=== PATIENT | female | born 1975 | race African-American/Black ===

== ENCOUNTER 2024-02-11 14:02 | Outpatient (CLI) | payer MEDICARE, SELFPAY ==
--- NOTE | ~2024-02-11 | US_ITS ---
EXAMINATION: US thyroid DATE: 02/11/2024 14:33 INDICATION: Thyroid nodules. TECHNIQUE: Multiple ultrasound images of the thyroid were obtained. COMPARISON: None. FINDINGS: The right thyroid lobe measures 5.3 x 1.8 x 1.5 cm. The left thyroid lobe measures 4.6 x 1.4 x 1.4 c m. In the thyroid isthmus, there is an 11 mm, solid, hypoechoic, wider than tall nodule with smooth margin without echogenic foci (TI-RADS TR4). IMPRESSION: 1. Thyroid nodule. Thyroid ultrasound is recommended in one year. Reviewed, dictated and finalized at location A.
== END 2024-02-11 14:03 | disposition home or self-care (01) ==
PROVIDERS: Visit Provider Internal Medicine Endocrinology, Diabetes & Metabolism
DX: R73.03 Prediabetes (principal); E04.1 Nontoxic single thyroid nodule
CPT/HCPCS: 76536

== ENCOUNTER 2025-03-13 12:54 | Outpatient (CLI) | payer MEDICARE, SELFPAY ==
--- NOTE | ~2025-03-13 | US_ITS ---
US thyroid INDICATION: Follow-up thyroid nodules TECHNIQUE: Real-time sonographic images of the thyroid gland were obtained. COMPARISON: Comparison to ultrasound dated 02/11/2024 FINDINGS: The right thyroid lobe measures 5.3 x 1.8 x 1.5 cm. The left thyroid lobe measures 4.6 x 1 .4 x 1.4 cm. In the right lobe there is an oval hypoechoic mass measuring 4 x 3 x 4 mm which is solid , hypoechoic, wider than tall, smoothly marginated without internal echogenic foci, TR 4. In the left lobe there is a hypoechoic 4 mm mass which is wider than tall, almost completely solid, hypoechoic, smoothly marginated without echogenic foci. In the isthmus there is an oval hypoechoic solid wider th an tall smoothly marginated mass measuring 7 x 6 x 4 mm, TR 4.Normal vascular flow is present. IMPRESSION: 1. Probable benign bilateral thyroid masses. Consider follow-up thyroid ultrasound in 12 months. Reviewed, dictated and finalized at location A. IMPRESSION: 1. Probable benign bilateral thyroid masses. Consider follow-up thyroid ultras ound in 12 months.
--- OUTSIDE RECORDS SUMMARY | 2025-03-13 13:01 | XMS_ITS | Data Portability ---
Author Organization [facility] Address [address] [place] [address] Assessment Encounter Date Assessment Date Assessment LastModified by Organization Details LastModified Time 12/29/2022 12/29/2022 Patient is an established patient who presents for a gynecological Annual Exam. The patient denies any changes in her medical history. The patient denies any changes in her family medical history. Annual Exam: She reports having no significant BLOCK STACKER symptoms. Her menses are irregular. States she has had a couple periods in the last year. Pt is currently using nothing for contraception. Pap History: 11/2020 HPV-, NILM She is not due for a pap smear. The patient does not have a history of an abnormal pap and/or HPV. Breast History: She denies breast symptoms. Education on Breast Self Awareness given. Mammogram: Order sent. Last one 12/24. Has one scheduled. Family History: Negative for Breast Cancer, Cervical Cancer, Colon Cancer, Endometrial Cancer and Ovarian Cancer. MYRisk test offered and declined. Social History: She is currently not sexually active. She denies complaints about sexual activity. Patient reports feeling safe at home from emotional, physical, and verbal abuse. She does not desire STD testing. Exercise: Occasional She wears her seat belt. She does not text and drive. The patient denies smoking and recreational drugs. She denies drinking alcohol. Patient is regularly seen by PCP for preventative care: Yes Cholesterol screening: Managed by PCP Colorectal Cancer Screening: Colonoscopy- PCP sending referral. [email or web address] Not available 12/29/2022 16:12:41 Plan of Treatment Reminders Order Date Submit Date Provider Last Modified By Organization Details Last Modified Time Details Appointments None record ed. Lab noninv asive colore ctal cancer DNA + occult blood screen ing, QL, stool 2024 025 [facility], [address] [facility], [address], [place], [address], 5 15:40:11 Referral None record ed. Procedures None record ed. Surgeries None record ed. Imaging MAMMO, screen ing, digita l, bilate ral 2024 025 [facility], [address], [place], [address], 5 17:37:53 MAMMO, screen ing, digita l, bilate ral 2023 024 [email or web address] [facility], [address], [place], [address], 4 15:36:42 MAMMO, screen ing, digita l, bilate ral 2022 023 [email or web address] [facility], [address], [place], [address], 3 17:47:23 MAMMO, screen ing, digita l, bilate ral 2021 022 [email or web address] Not available 2 17:25:28 Medication Orders Macrob id 100 mg capsul e 2022 023 [facility] [employer], [facility], [address] [place] [address], [address] [place] [address], [address], 4 10:49:58 Patient TargetsNo targets recorded. Patient Instructions Encounter Date Encounter Id Patient Instructions Last Modified By Organization Details Last Modified Time 12/19/2021 [id number] abuse/domestic violence education tcarrell Not available 12/20/2021 13:01:54 eating healthy foods: care instructions tcarrell Not available 12/20/2021 13:01:54 general health care education tcarrell Not available 12/20/2021 13:01:54 weight managemen t education tcarrell Not available 12/20/2021 13:01:54 mammogram: about this test tcarrell Not available 12/20/2021 13:01:54 12/29/2022 [id number] Patient Health Questionnaire-9* Not available 01/02/2023 17:37:38 A healthy lifestyle: care instructions bnotzke Not available 12/29/2022 16:12:52 substance use disorder: care instructions bnotzke Not available 12/29/2022 16:12:53 tobacco cessation bnotzke Not availabl e 12/29/2022 16:12:52 Following the [employer] Food Guide: Care Instructions bnotzke Not available 12/29/2022 16:12:52 exercise program : getting started bnotzke Not available 12/29/2022 16:12:52 learning about colonoscopy bnotzke Not available 12/29/2022 16:12:53 mammogram: about this test bnotzke Not available 12/29/2022 16:12:53 mammogram screening patient instructions bnotzke Not available 12/29/2022 16:12:52 01/04/2024 [id number] A healthy lifestyle: care instructions bnotzke Not available 01/04/2024 11:35:13 Following the [employer] Food Guide: Care Instructions bnotzke Not available 01/04/2024 11:35:13 exercise program : getting started bnotzke Not available 01/04/2024 11:35:13 mammogram: about this test bnotzke Not available 01/04/2024 11:35:13 mammogram screening patient instructions bnotzke Not available 01/04/2024 11:35:13 control counseling bnotzke Not available 01/04/2024 11:35:13 01/04/2025 [id number] body mass index: care instructions bnotzke Not available 01/04/2025 11:36:50 A healthy lifestyle: care instructions bnotzke Not available 01/04/2025 11:36:50 Following the [employer] Food Guide: Care Instructions bnotzke Not available 01/04/2025 11:36:50 exercise program : getting started bnotzke Not available 01/04/2025 11:36:50 learning about colonoscopy bnotzke Not available 01/04/2025 11:36:50 mammogram: about this test bnotzke Not available 01/04/2025 11:36:50 mammogram screening patient instructions bnotzke Not available 01/04/2025 11:36:50 Reason for Referral None Reported. Problems Name Problem SNOMED Code Status Onset Date Resolution Date Notes Provider Name and Address Organization Details Recorded Time Screening for malignant neoplasm of cervix Active 2020 Encounter for screening for malignant neoplasm of cervix; Progress: Stable Added By: Rosa Hitchcock Add to Current Problems: YES ProblemStat us: Current Not Available [facility] 2 16:10:01 Screening mammograph y Active 2020 Encounter for screening mammogram for malignant neoplasm of breast; Progress: Stable Added By: Austin Felder Add to Current Problems: YES ProblemStat us: Current Not Available [facility] 2 16:10:01 Sampling of vagina for Papanicola ou smear Active 2020 Encounter for gynecologic al examination (general) (routine) without abnormal findings; Progress: Stable Added By: Rosa Hitchcock Add to Current Problems: YES ProblemStat us: Current Not Available [facility] 2 16:10:01 Problem Notes None recorded. Procedures Surgical History Date Name Laterality Status Provider Name and Address Organization Details Recorded Time 4 Most Recent Mammogram completed POLLO MOORE- [address] [facility], [place], [address], [facility] [employer] 01/04/2025 11:27:09 1 Date of Last Pap Smear [facility] 12/29/2022 13:30:35 Imaging Results None recorded. Procedure Notes None recorded. Medical Equipment None Reported. Allergies No known drug allergies Medications Name Sig Start Date Stop Date Status Note LastModified by Organization Details LastModified Time lisinopri l 20 mg-hydroc hlorothia zide 12.5 mg tablet take 1 tablet by oral route once daily 01/03 completed lisinopr iL-hydro chloroth iazide 20-12.5 mg oral tablet RxNorm: 544750 Refill Denied: No Refill DateOccu rred: 11/07/19 21 Edited by: Rosa Burt) on 11/07/19 21 Stopped by: Rosa Burt) on Not Available Not Available Not Available risperido ne 0.25 mg tablet take 1 tablets (0.5 mg) by oral route at HS 01/03 completed Not Available Not Available Not Available amlodipin e 2.5 mg tablet take 1 tablet (2.5 mg) by oral route once daily active Not Available Not Available No t Available losartan 25 mg tablet active Not Available Not Available Not Available ergocalci ferol (vitamin D2) 1,250 mcg (50,000 unit) capsule active Not Available Not Available Not Available ibuprofen 600 mg tablet active Not Available Not Available Not Available risperido ne 0.5 mg tablet active Not Available Not Available Not Available escitalop jose carlos 10 mg tablet active Not Available Not Available Not Available ezetimibe 10 mg tablet active Not Available Not Available Not Available rosuvasta tin 20 mg tablet active Not Available Not Available Not Available escitalop jose carlos 5 mg tablet 12/29 completed Not Available Not Available Not Available nitrofura ntoin monohydra te/macroc rystals 100 mg capsule Take 1 capsule every 12 hours by oral route for 5 days. 01/03 completed Not Available Not Available Not Available omega 3-dha-epa -fish oil 1,200 mg (144 mg-216 mg) capsule 12/29 completed omega 3-dha-ep a-fish oil 1,200 (144-216 ) mg oral capsule Refill Denied: No Refill DateOccu rred: 11/07/19 21 Edited by: Rosa Burt) on 11/07/19 21 Stopped by: Rosa Burt) on Not Available Not Available Not Available Fish Oil 360 mg-1,200 mg capsule,d elayed release active Not Available Not Available Not Available Vitals Date Recorded Body height Body mass index (BMI) Body weight Body temperature Systolic blood pressure Diastolic blood pressure Provider Name and Address Organization Details Last Updated DateTime 2 162.56 cm 38.4 kg/m2 655022. 69 g 97 [degF] 122 mm[Hg] 78 mm[Hg] [facility] 2 12:15:37 Date Recorded Body height Body mass index (BMI) Body weight Body temperature Systolic blood pressure Diastolic blood pressure Provider Name and Address Organization Details Last Updated DateTime 3 162.56 cm 39.7 kg/m2 705121. 84 g 97.4 [degF] 119 mm[Hg] 80 mm[Hg] Milysonia Pemberton [facility] [employer] [facility] 3 15:53:16 Date Recorded Body height Body mass index (BMI) Body weight Systolic blood pressure Diastolic blood pressure Provider Name and Address Organization Details Last Updated DateTime 01/04/2024 162.56 cm 38.6 kg/m2 584067. 28 g 110 mm[Hg] 62 mm[Hg] Rafaela Thompson [facility] [employer] [facility] 4 11:11:50 Date Recorded Body height Body mass index (BMI) Body weight Body temperature Systolic blood pressure Diastolic blood pressure Provider Name and Address Organization Details Last Updated DateTime 5 162.56 cm 37.7 kg/m2 55526.6 g 97.6 [degF] 106 mm[Hg] 68 mm[Hg] Dennysdaniellejalen Sears [facility] [employer] [facility] 5 11:15:12 Social History Question Answer Notes LastModified by Organizat ion Details LastModified Time Tobacco Smoking Status Never Smoker Mily P[facility], [facility] [employer] 12/29/2022 15:53:44 If You Are , What Was Your Level Of Alcohol Consumption Prior To ? None Information not available 12/29/2022 Are You Blind Or Do You Have Difficulty Seeing? No [email or web address] Information not available 12/29/2022 Are You Deaf Or Do You Have Serious Difficulty Hearing? No [email or web address] Information not available 12/29/2022 What Type Of Diet Are You Following? SPECIFIC Information not available 01/04/2024 What Is Your Relationship Status? Single Information not available 12/04/2021 Are You Sexually Active? No Information not available 12/04/2021 Sex: Unknown Functional Status Question Answer Note LastModified by Organizat ion Details LastModified Time Do you use any illicit or recreational drugs? No Information not available 12/29/2022 Do you or have you ever used any other forms of tobacco or nicotine? No [email or web address] Information not available 12/29/2022 What is your level of alcohol consumption? None [email or web address] Information not available 12/29/2022 What is your exercise level? None Information not available 01/04/2024 Mental Status None recorded. Family History Nothing Reported. Medical History Condition Response High Blood Pressure Y Gynecological History Statement/Question Response Date of last HPV 11/08/2020 Date of LMP 12/28/2023 Date of Last Pap Smear 11/08/2020 Most Recent Mammogram 01/25/2024 Current Control Method None Age at Menarche 12 Obstetrics History GPAL:G 0 P 0 0 0 0 Past Encounters Encounter ID Performer Location Encounter Start Date Encounter Closed Date Diagnosis/Indication Diagnosis SNOMED-CT Code Diagnosis ICD10 Code Diagnosis Note [id number] BRENDON MICHELLE SHAVER CNM [facility] [address] [place] [address] 12/19/2021 11:20:29 01/06/2022 14:49:49 Gynecologic examination 16310347 Z01.419 Screening for malignant neoplasm of breast 407190049 Z12.39 [id number] RAMSEY MOORE [facility] [address] [place] [address] 12/29/2022 15:36:09 12/29/2022 18:30:13 Gynecologic examination 75598653 Z01.419 Screening for malignant neoplasm of cervix 799844636 Z12.4 ASCCP guidelines reviewed with patient. Pap Hx: No pap collected today. Pt states understand ing and is amenable to POC. Screening mammography of bilateral breasts 4965060578 03949 Z12.31 Pt educated on breast cancer screening guidelines , and discussed recommenda tion for scheduling imaging at hospital of her choice. Reviewed recommenda tion to have imaging done at same facility if possible as previous screenings . Pt states understand ing of POC. Screening for malignant neoplasm of colon 181827641 Z12.11 Depression screening 171 757351 Z13.31 Dysuria 82346099 R30.0 [id number] [facility] [address] [place] [address] 01/04/2024 09:50:15 01/04/2024 17:53:37 Gynecologic examination 30268235 Z01.419 Patient is an establishe d patient who presents for a gynecologi michelle Annual Exam. The patient denies any changes in her medical history. The patient denies any changes in her family medical history. Annual Exam:She reports having no significan t BLOCK STACKER symptoms.H er menses are irregular. States she has had a couple periods in the last year.Pt is currently using nothing for contracept ion. Pap History: 11/2020 HPV-, NILMShe is not due for a pap smear.The patient does not have a history of an abnormal pap and/or HPV. Breast History:Karly colby denies breast symptoms. Education on Breast Self Awareness givenMammo gram: Order sent. Last one 12/24. Has one scheduled. Family History:Ne gative for Breast Cancer, Cervical Cancer, Colon Cancer, Endometria l Cancer and Ovarian Cancer.MYR isk test offered and declined. Social History:Karly colby is currently not sexually active. She denies complaints about sexual activity. Patient reports feeling safe at home from emotional, physical, and verbal abuse.She does not desire STD testing. Exercise: Occasional She wears her seat belt. She does not text and drive.The patient denies smoking and recreation al drugs. She denies drinking alcohol. Patient is regularly seen by PCP for preventati ve care: YesCholest nickolas screening: Managed by PCPColorec jeri Cancer Screening: Managed by PCP Screening for malignant neoplasm of cervix 486275132 Z12.4 ASCCP guidelines reviewed with patient. Pap Hx: No pap collected today. Pt states understand ing and is amenable to POC. Screening mammography of bilateral breasts 6822266033 49627 Z12.31 Pt educated on breast cancer screening guidelines , and discussed recommenda tion for scheduling imaging at hospital of her choice. Reviewed recommenda tion to have imaging done at same facility if possible as previous screenings . Pt states understand ing of POC. Contracept ion education 340121124 Z30.09 Contracept woodrow counseling : Discussed options including OCPs, NuvaRing, Nexplanon, hormonal and copper IUDs. Discussed risks, efficacy, non contracept woodrow benefits, and side effects of each option, including risk of VTE with hormonal contracept ion and uterine perforatio n, expulsion, infection with IUD. [id number] DAVID BENDER, [facility] [address] [place] [address] 01/04/2025 10:44:40 01/04/2025 11:54:38 Gynecologic examination 47033626 Z01.419 Patient is an establishe d patient who presents for a gynecologi michelle Annual Exam. The patient denies any changes in her medical history. The patient denies any changes in her family medical history. Annual Exam:She reports having no significan t BLOCK STACKER symptoms.M enopause. No period since 12/2023. Pap History: 11/2020 HPV-, NILMShe is not due for a pap smear.The patient does not have a history of an abnormal pap and/or HPV. Breast History:Sh e denies breast symptoms. Education on Breast Self Awareness givenMammo gram: Order sent. Last one 01/25/2024. Will schedule. Patient is regularly seen by PCP for preventati ve care: YesCholest nickolas screening: Managed by PCPColorbrianna wilcox Cancer Screening: Cologuard sent Screening for malignant neoplasm of cervix 097171878 Z12.4 ASCCP guidelines reviewed with patient. Pap Hx: No pap collected today. Pt states understand ing and is amenable to POC. Screening mammography of bilateral breasts 2056863916 59109 Z12.31 Pt educated on breast cancer screening guidelines , and discussed recommenda tion for scheduling imaging at hospital of her choice. Reviewed recommenda tion to have imaging done at same facility if possible as previous screenings . Pt states understand ing of POC. Screening for malignant neoplasm of colon 074371248 Z12.11 Health Concerns Section Related Observation LastModified by Organization Detai ls LastModified Time None Recorded Concern Status LastModified by Organization Details LastModified Time None Recorded Advance Directives Directive None Recorded Payers Insurance Date Sequence Insurance Name Policy Number Policy Jackson Covered Member ID Jackson Member ID Guarantor Name 01/04/2025 1 [place] Petrona Pemberton [id number] Petrona Pemberton 02/09/2022 PAYMENT PLAN Petrona Pemberton 01/04/2025 2 [place] [facility] Petrona Pemberton [id number] Petrona Pemberton Notes Date Note Type Note Provider Name and Address Organization Details Recorded Time 12/19/2021 text/html Annual GYNReport ed bypatient.Menstrua l cycle:Normal menses Urinary symptoms:No hematuria; No incontinence Vulva:No genital lesion Vagina:Normal vaginal discharge Breast:No breast pain; No breast lump; No nipple discharge Current Contraception:Jordan h control not practiced; Not sexually active Menopausal Symptoms:No menopausal symptoms; Normal vaginal lubrication Psychological symptoms:No depression; No anxiety; No PMDD Preventive measures:Encourage self breast examination; Encourage regular exercise; Encourage no tobacco use; Encourage regular mammograms starting age 40; Followed with Q3 year pap smear and high risk HPV typing BRENDON SHAVER CNM [address] [place], [address], [employer] 12/22/2021 23:47:07 12/29/2022 text/html Pt have been having urinary incontinence for the past two weeks. Pt says she have to use the bathroom frequently. Pt reports pelvic pressure and dysuria. RAMSEY MOORE [address] [place], [address], [employer] [facility] 12/29/2022 16:16:22 01/04/2024 text/html Annual GYNReport ed bypatient.Urinary symptoms:No hematuria; No incontinence Vulva:No genital lesion Vagina:Normal vaginal discharge Breast:No breast pain; No breast lump; No nipple discharge Menopausal Symptoms:No menopausal symptoms Patient is due for annual today, there are no concerns. RAMSEY MOORE [address] [place], [address], [employer] [facility] 01/04/2024 11:35:53 01/04/2025 text/html Annual GYNReport ed bypatient.Urinary symptoms:No hematuria; No incontinence Vulva:No genital lesion Vagina:Normal vaginal discharge Breast:No breast pain; No breast lump; No nipple discharge Sexual complaints:No sexual complaints; No pain during intercourse; Normal libido Menopausal Symptoms:No menopausal symptoms; Normal vaginal lubrication Psychological symptoms:No depression; No anxiety; No PMDD Petrona is here for an annual exam. Pt LMP was 12-28-2023. Her last pap was 11/2020. She does not use control. She is not UTD on her mammograms, last done, 2022. She is not able to complete the PHQ9. DAVID BENDER, [facility] [address] [place], [address], [facility] 01/04/2025 11:38:48 OBGyn Episode No OBEpisode recorded.
--- OUTSIDE RECORDS SUMMARY | 2025-03-13 13:01 | XMS_ITS | Clinical Summary ---
Author Organization [address] Address [address] [address] Care Team Providers Care Mine Surveyor Name Role Phone Ian Morley MD Primary Care Provider + Allergies No known active allergies Medications amLODIPine (NORVASC) 2.5 mg tablet Take 1 tablet (2.5 mg total) by mouth daily Active escitalopram (LEXAPRO) 10 mg tablet Take 1 tablet (10 mg total) by mouth every morning 5 Active ezetimibe (ZETIA) 10 mg tablet Take 1 tablet (10 mg total) by mouth daily 5 Active Fish OiL 360-1,200 mg capsule,delayed release(DR/EC) Take 1,200 mg by mouth daily 5 Active losartan (COZAAR) 25 mg tablet Take 1 tablet (25 mg total) by mouth daily 5 Active risperiDONE (RisperDAL) 0.5 mg tablet Take 1 tablet (0.5 mg total) by mouth 2 (two) times a day 5 Active ibuprofen (ADVIL,MOTRIN) 600 mg tablet Take 1 tablet (600 mg total) by mouth every 6 (six) hours as needed for pain, fever or headaches 9 Active rosuvastatin (CRESTOR) 20 mg tablet Take 1 tablet (20 mg total) by mouth daily 5 Active ergocalciferol (VITAMIN D) 50,000 unit capsule Take 1 capsule (50,000 Units total) by mouth once a week Active acetaminophen (TYLENOL) 325 mg tablet Take 2 tablets (650 mg total) by mouth every 4 (four) hours as needed for pain or headaches Active aluminum-magnes ium hydroxide-simet hicone (MAALOX MAX) suspension 400-400-40 mg/5 mL Take by mouth every 6 (six) hours as needed for indigestion or heartburn Active diphenhydrAMINE 25 mg capsule Take 1 tablet/capsule (25 mg total) by mouth every 6 (six) hours as needed for allergies or itching Active bisacodyl EC (DULCOLAX EC) 5 mg EC tabletIndicatio ns:constipation Take 1 tablet (5 mg total) by mouth daily as needed for constipation Active dextromethorpha n-guaifenesin 10-200 mg capsule Take by mouth Active UNABLE TO FIND Cpap Activ e mirabegron ER (MYRBETRIQ) 25 mg tablet extended release 24 hrIndications:B ladder Hyperactivity,U rinary Urgency Take 1 tablet (25 mg total) by mouth daily 30 tablet 5 Active Active Problems Problem Noted Date Diagnosed Date Hypertension, essential 01/25/2025 Assessment & Plan (01/25/2025 1:48 PM CDT): Stable on amlodipine and losartan Hypercholesterolemia 01/25/2025 Assessment & Plan (01/25/2025 1:48 PM CDT): Stable on rosuvastatin and Zetia Mild episode of recurrent major depressive disor gay 01/25/2025 Assessment & Plan (01/25/2025 1:51 PM CDT): Stable on escitalopram Class 2 severe obesity due t o excess calories with serious comorbidity and body mass index (BMI) of 39.0 to 39.9 in adult 01/25/2025 Assessment & Plan (01/25/2025 1:52 PM CDT): BMI Follow-up includes: exercise counseling. Overactive bladder 01/25/2025 Assessment & Plan (01/25/2025 2:08 PM CDT): Discussed avoiding caffeine especially after 6:00 p.m.. Also discussed limiting fluids after 6 p.m. Given information on Kegel exercises. Will try Myrbetriq 25 mg once a day. Intellectual disability 01/25/2025 Assessment & Plan (01/25/2025 1:56 PM CDT): Stable Schizophrenia 01/25/2025 Obstructive sleep apnea 01/25/2025 Assessment & Plan (01/25/2025 1:59 PM CDT): Uses CPAP nightly and benefits from it. Encounters Date Type Department Care Team Description 01/30/2025 Results Follow-Up [facility] [address] [place] [address] Ian Morley MD 01/25/2025 1:30 PM CDT Office Visit [facility] [address] [place] [address] Ian Morley MD Hypertension, essential (Primary Dx); Hypercholesterolemia ; Mild episode of recurrent major depressive disorder; Class 2 severe obesity due to excess calories with serious comorbidity and body mass index (BMI) of 39.0 to 39.9 in adult (HCC); Overactive bladder; Intellectual disability; Obstructive sleep apnea from Last 3 Months Immunizations Immunization Administration Dates Next Due DTP 08/08/1993, 6,1975,08/28 Influenza, Quadrivalent, Emani l Culture-based MDCK, Preservative Free, Antibiotic Free, Intramuscular 08/06/2023,07/15/2022 Influenza, Quadrivalent, Spl it, Intramuscular 07/26/2019 Influenza, Quadrivalent, Spl it, Preservative Free, Intramuscular 08/10/2018 Influenza, Trivalent, Cell Culture-based MDCK, Preservative Free, Antibiotic Free, Intramuscular 08/08/2024 Influenza, Trivalent, IM (MDV) 07/30/2021 MMR 08/08/1993 Measles / Rubella 04/18/1976 OPV 10/17/1976,1975,1975 Tdap 11/30/2019 Family History Medical History Relation Name Comments Breast cancer Mother Breast cancer Mother's Sister Relation Name Status Comments Mother Mother's Sister Social History Tobacco Use Types Packs/Day Years Used Date Smoking Tobacco: Never Smokeless Tobacco: Never Tobacco Cessation:Counseling Given: Not Answered AUDIT-C Answer Date Recorded Q1: How often do you have a drink containing alcohol? Never 01/25/2025 Q2: How many drinks containi ng alcohol do you have on a typical day when you are drinking? Patient does not drink Q3: How often do you have si x or more drinks on one occasion? 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 Gender Identity Not on file Sexual Orientation Not on file Obstetrics History Para Term AB IAB SAB Ectopic Multiple Livin g Live Births 0 0 0 0 0 0 0 0 0 0 0 Last Filed Vital Signs Vital Sign Reading Time Taken Comments Blood Pressure 128/72 01/25/2025 1:45 PM CDT Pulse 78 01/25/2025 1:45 PM CDT Temperature 36.4 C (97.6 F) 01/25/2025 1:45 PM CDT Respiratory Rate 18 01/25/2025 1:45 PM CDT Oxygen Saturation 98% 01/25/2025 1:45 PM CDT Inhaled Oxygen Concentration - - Weight 100.3 kg (221 lb 1.6 oz) 01/25/2025 1:45 PM CDT Height 158.8 cm (5' 2.5 ) 01/25/2025 1:45 PM CDT Body Mass Index 39.8 01/25/2025 1:45 PM CDT Plan of Treatment Health Maintenance Due Date Last Done Comments Cervical Cancer Screening 1975 Hepatitis C Screening 1975 Hepatitis B Screening 1993 Regular Well Visit/Exam 18-64 1993 Covid-19 Vaccine ( season) 2024 01/07/2023, 09/19/2021, 02/06/2021 Breast Cancer Screening-Mammogram 01/24/2025 01/25/2024, 01/23/2023, 01/13/2022, Additional history exists Depression Screening 01/25/2026 01/25/2025 DTaP/Tdap/Td Vaccine (6 - Td or Tdap) 11/30/2029 11/30/2019, 08/08/1993, 1975, Additional history exists Colon Cancer Screening-Colonoscopy 06/12/2033 06/12/2023 Influenza Vaccine Completed 08/08/2024, , 07/15/2022, Additional history exists Pneumococcal vaccine <65 Aged Out No longer eligible based on patient's age to complete this topic Procedures Procedure Name Priority Date/Time Associated Diagnosis Comments LIPID PANEL Routine 01/27/2025 7:15 AM CDT Hypercholesterole nithya COMPREHENSIVE METABOLIC PANEL Routine 01/27/2025 7:15 AM CDT Hypertension, essential Hypercholesterole nithya HM COLONOSCOPY Routine 06/12/2023 SCREENING MAMMOGRAM BILATERAL W WILBERTO Schedule Routine, Read Routine (OP Routine) 01/13/2022 1:11 PM CDT Screening mammogram, encounter for from Last 3 Months or Most Recently Relevant to Health Maintenance Results * Lipid panel (01/27/2025 7:15 AM CDT) Cholesterol 134 <200 mg/dL [facility] HDL 64 > OR = 50 mg/dL [facility] Triglycerides 74 <150 mg/dL [facility] LDL 55 mg/dL (calc) [facility] Comment: Reference range: <100 Desirable range <100 mg/dL for primary prevention; <70 mg/dL for patients with CHD or diabetic patients with > or = 2 CHD risk factors. LDL-C is now calculated using the Bridger calculation, which is a validated novel method providing better accuracy than the Friedewald equation in the estimation of LDL-C. Rufino WOLFF et al. JAY. 2013;310(19): 9517-7695 (http://education.Zoomaal.Redapt/faq/HTD189) Chol/HDL ratio 2.1 <5.0 (calc) [facility] Non-HDL, (LDL+VLDL) 70 <130 mg/dL (calc) [facility] Comment: For patients with diabetes plus 1 major ASCVD risk factor, treating to a non-HDL-C goal of <100 mg/dL (LDL-C of <70 mg/dL) is considered a therapeutic option. Blood 01/27/2025 7:15 AM CDT 01/27/2025 7:16 AM CDT Narrative [facility] - 01/28/2025 3:44 AM CDT FASTING:YES FASTING: YES us Ian Morley MD LAB BLOOD ORDERABLES Fin al Result [facility] [address] [place] [address] * Comprehensive metabolic panel (01/27/2025 7:15 AM CDT) Pathologist [facility] Glucose 81 65 - 99 mg/dL [facility] Comment: Fasting reference interval BUN 13 7 - 25 mg/dL [facility] Creatinine 0.68 0.50 - 0.99 mg/dL [facility] eGFR 107 > OR = 60 mL/min/1.7 3m2 [facility] BUN/creat ratio SEE NOTE: 6 - 22 (calc) [facility] Comment: Not Reported: BUN and Creatinine are within reference range. Sodium 138 135 - 146 mmol/L [facility] Potassium, pl 4.0 3.5 - 5.3 mmol/L [facility] Chloride 103 98 - 110 mmol/L [facility] CO2 28 20 - 32 mmol/L [facility] Calcium 9.4 8.6 - 10.2 mg/dL [facility] Protein, sr 7.1 6.1 - 8.1 g/dL [facility] Albumin 3.9 3.6 - 5.1 g/dL [facility] GLOBULIN 3.2 1.9 - 3.7 g/dL (calc) [facility] Alb/glob ratio 1.2 1.0 - 2.5 (calc) [facility] Bilirubin, total 0.7 0.2 - 1.2 mg/dL [facility] Alk phos 61 31 - 125 U/L [facility] AST 19 10 - 35 U/L [facility] ALT (SGPT) 18 6 - 29 U/L [facility] Blood 01/27/2025 7:15 AM CDT 01/27/2025 7:16 AM CDT Narrative [facility] - 01/28/2025 3:44 AM CDT FASTING:YES FASTING: YES Ian Morley MD LAB BLOOD ORDERABLES Fin al Result [facility] [address] [place] [address] * HM COLONOSCOPY (06/12/2023) 06/12/2023 Historical Provider HEALTH MAINTENANCE Final Result * Screening Mammogram Bilateral W Wilberto (01/13/2022 1:11 PM CDT) Anatomical Region Laterality Modality Breast Bilateral Mammography Impressions 01/13/2022 1:22 PM CDT BI-RADS ATLAS category (overall): 1 - Negative There is no mammographic evidence of malignancy. A 1 year screening mammogram is recommended. The patient has been or will be contacted. We recommend annual screening mammography for women at average risk of breast cancer beginning at age 40, based on guidelines of the [employer] (ACR Practice Parameter for the Performance of Screening and Diagnostic Mammography) and [employer]. For women with and elevated risk of breast cancer, please refer to the ACR Practice Parameter for specific screening recommendations. The patient will be entered into a reminder system with a target due date of 1 year for her next screening exam. Narrative 01/13/2022 1:22 PM CDT Screening Mammogram Bilateral W Wilberto: 01/13/22 The study was acquired using full field digital technology and interpreted from soft copy. 2D digital mammographic views, as well as 3D digital tomosynthesis were performed in the CC and MLO projections. CLINICAL: Screening mammogram, encounter for. No relevant medical history has been documented for this patient. History of breast cancer in Mother, Mother's Sister. COMPARISONS: 08/03/2018 Screening Mammogram Bilateral W Wilberto 05/04/2017 Screening Mammogram Bilateral W Wilberto 11/30/2013 Screening Mammogram 2D Bilateral BREAST TISSUE: The breasts have scattered areas of fibroglandular density. FINDINGS: No suspicious masses, suspicious calcifications, or other suspicious findings are seen within either breast. There has been no suspicious change. us Ángel Webb MD IMG MAMMO PROCEDURES Yesi l Result from Last 3 Months or Most Recently Relevant to Health [place] [address] MEDICARE [facility] [place] [address] MEDICARE MEDICARE [employer] Advance Directives For more information, please contact: [phone] Documents on File Type Date Recorded Patient Voice Studies Director Expl anation Power of Electronic Intelligence Officer 01/25/2025 1:21 PM Care Teams Mine Surveyor Relationship Specialty Start Date End Date Ian Morley MD [address] [place] [address] PCP - General Internal Medicine 01/25/25
--- OUTSIDE RECORDS SUMMARY | 2025-03-13 13:01 | XMS_ITS | Referral Summary ---
Author Organization [address] Address [address] [address] Care Team Providers Care Wood Fuel Pelletizer Name Role Phone Ian Morley MD Primary Care Provider + Encounters Date Type Department Care Team Description 01/30/2025 Results Follow-Up [facility] [address] [place] [id number] Ian Morley MD 01/25/2025 1:30 PM CDT Office Visit [facility] [address] [place] [address] Ian Morley MD Hypertension, essential (Primary Dx); Hypercholesterolemia ; Mild episode of recurrent major depressive disorder; Class 2 severe obesity due to excess calories with serious comorbidity and body mass index (BMI) of 39.0 to 39.9 in adult (HCC); Overactive bladder; Intellectual disability; Obstructive sleep apnea from Last 3 Months Allergies No known active allergies Medications amLODIPine [...] total) by mouth daily 30 tablet 5 5 Active Active Problems Problem Noted Date [...] Uses CPAP nightly and benefits from it. Immunizations Immunization Administration Dates Next Due DTP 08/08/1993, 6,1975,08/28 Influenza, Quadrivalent, Emani l Culture-based MDCK, Preservative Free, Antibiotic Free, Intramuscular 08/06/2023,07/15/2022 Influenza, Quadrivalent, Spl it, Intramuscular 07/26/2019 Influenza, Quadrivalent, Spl it, Preservative Free, Intramuscular 08/10/2018 Influenza, Trivalent, Cell Culture-based MDCK, Preservative Free, Antibiotic Free, Intramuscular 08/08/2024 Influenza, Trivalent, IM (MDV) 07/30/2021 MMR 08/08/1993 Measles / Rubella 04/18/1976 OPV 10/17/1976,1975,1975 Tdap 11/30/2019 Social History Tobacco Use Types Packs/Day Years [...] on file 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 Rufino SS et al. JAY. 2013;310(23): 4165-0614 (http://education.Diamond T. Livestock/faq/QKV081) Chol/HDL ratio 2.1 <5.0 (calc) [facility] BLOOD ORDERABLES Fin al Result [facility] [address] [facility] [address] [place] [address] * Comprehensive metabolic panel (01/27/2025 7:15 AM CDT) Pathologist [facility] Glucose 81 65 - 99 mg/dL [facility] [...] BLOOD ORDERABLES Fin al Result [facility] [address] [facility] [place] [address] * HM COLONOSCOPY (06/12/2023) 06/12/2023 Historical Provider [...] age 40, based on guidelines of the [employer] (ACR Practice Parameter for the Performance of Screening and Diagnostic Mammography) and [employer]. For women [...] breast. There has been no suspicious change. Ángel Webb MD IMG MAMMO PROCEDURES Yesi l Result from Last 3 Months or Most Recently Relevant to [place] [address] [place] [address] [place] [address] MEDICARE [employer] Advance Directives For more information, please contact: [phone] Documents on File Type Date Recorded Patient Building Serviceman Expl anation Power of Marine Propulsion Technician 01/25/2025 1:21 PM Care Teams Wood Fuel Pelletizer Relationship Specialty Start Date End Date Ian Morley MD [address] [place] [address] PCP - General Internal Medicine 01/25/25
--- OUTSIDE RECORDS SUMMARY | 2025-03-13 13:01 | XMS_ITS | Data Portability ---
Author Organization [place] - [facility] OFFICE Address [address] [place] [address] Care Team Providers Care Communication Engineer Name Role Phone TOMAS HYATT Primary Care Provider TOMAS HYATT Referring Provider [phone] Assessment Encounter Date Assessment Date Assessment LastModified by Organization Details LastModified Time 09/17/2023 09/17/2023 Patient Examined by STEFAN Abel, Also Documentation reviewed and approved by supervising physician [email or web address] Not available 09/17/2023 10:54:44 Plan of Treatment Reminders Order Date Submit Date Provider Last Modified By Organization Details Last Modified Time Details Appointments ESTABLISH ED PATIENT DETAILED 2024 10:30A M Jose Macias i, MD Not available Not available Not available Lab None recorded. Referral None recorded. Procedures None recorded. Surgeries None recorded. Imaging None recorded. Medication Orders None recorded. Patient TargetsNo targets recorded. Patient Instructions Encounter Date Encounter Id Patient Instructions Last Modified By Organization Details Last Modified Time 03/19/2023 [id number] Weight loss 20 pounds Exercise advised Low cholesterol diet advised Low sodium diet advised. [email or web address] Not available 03/19/2023 11:14:20 09/17/2023 [id number] Low cholesterol diet advised Low sodium diet advised. [email or web address] Not available 09/17/2023 11:00:45 03/15/2024 [id number] Weight loss 20 pounds Exercise advised Low cholesterol diet advised Low sodium diet advised. [email or web address] Not available 03/15/2024 12:14:04 Reason for Referral None Reported. Results Created Date Observation Date Name Description Value Unit Range Abnormal Flag Note LastModifiedBy Organization Detail LastModifiedTime 09/08/20 22 09/04/2022 elect rocar diogr am No observ ation record ed. [email or web address] Not Available 2021 15:08:06 10/05/20 22 10/01/2022 , [facility] ardio gram No observ ation record ed. [facility] [address], [place], [address], 11/04/2022 16:12:43 10/20/20 22 09/16/2022 exerc ise stres s test No observ ation record ed. Not Available 2021 10:30:45 03/20/20 23 02/17/2023 pacem kristie jaimes rogat ion (PROC ) No observ ation record ed. Not Available 2022 10:49:16 09/22/20 23 09/17/2023 elect rocar diogr am No observ ation record ed. Not Available 2022 17:39:37 03/16/20 24 03/15/2024 elect rocar diogr am No observ ation record ed. Not Available 2023 09:04:20 03/16/20 24 03/15/2024 elect rocar diogr am No observ ation record ed. Not Available 2023 09:26:49 09/13/20 24 09/10/2024 elect rocar diogr am No observ ation record ed. Not Available 2023 11:16:20 09/19/20 24 09/14/2024 , [facility] ardio gram No observ ation record ed. [email or web address] [address], [place], [address], 09/20/2024 11:26:10 Result Notes None recorded. Problems Name Problem SNOMED Code Status Onset Date Resolution Date Notes Provider Name and Address Organization Details Recorded Time Obstructive sleep apnea syndrome 69120298 Active 2020 MIKE Cueva - [facility] 14:30:01 Benign essential hypertension 2207412 Active 2017 Gilbert Mesto null, [place] - [facility] 8 10:55:54 Body mass index 40+ - severely obese 086644296 Active 2017 Vladimir [place] - [facility] 8 10:56:14 Obesity 112815805 Active 2017 Vladimir [place] - [facility] 8 10:56:25 Cognitive developmental delay 505712611 Active 2017 [place] - [facility] 8 10:56:58 Schizophrenia 41626128 Active 2017 Darien Self [place], [place] - [facility] 8 11:39:27 Diastolic dysfunction 6927282 Active 2017 Darien Herringi [place] - [facility] 8 13:00:41 Dyslipidemia 190650080 Active 2019 Vladimir Kelly [place] - [facility] 0 21:48:16 Problem Notes None recorded. Procedures Surgical History None recorded. Imaging Results Imaging Date Name Status LastModified by Organization Details LastModified Time 09/04/2022 electrocardiogram completed [email or web address] Informa tion not available 09/08/2022 15:08:06 10/01/2022 , echocardiogram completed [facility] [address], [place], [address], 11/04/2022 16:12:43 09/16/2022 exercise stress test completed Info rmation not available 10/20/2022 10:30:45 02/17/2023 pacemaker interrogation (PROC) completed Information not available 03/20/2023 10:49:16 09/17/2023 electrocardiogram completed Informa tion not available 09/22/2023 17:39:37 03/15/2024 electrocardiogram completed Informa tion not available 03/16/2024 09:04:20 03/15/2024 electrocardiogram completed Informa tion not available 03/16/2024 09:26:49 09/10/2024 electrocardiogram completed Informa tion not available 09/14/2024 11:16:20 09/14/2024 US, echocardiogram completed [email or web address] [address], [place], [address], 09/20/2024 11:26:10 Procedure Notes None recorded. Medical Equipment None Reported. Allergies No known drug allergies Medications Name Sig Start Date Stop Date Status Note LastModified by Organization Details LastModified Time Prinivil 10 mg tablet Take 1 tablet every day by oral route. 12/15 completed not taking this medicati on Not Available Not Available Not Available lisinopri l 20 mg-hydroc hlorothia zide 12.5 mg tablet qd 09/11 completed 09/11/21 stopped at office visit/NU /ek Not Available Not Available Not Available risperido ne 0.25 mg tablet qd 09/04 completed Not Available Not Available Not Available amlodipin e 2.5 mg tablet Take 1 tablet every day by oral route. active Not Available Not Available No t Available cephalexi n 500 mg capsule 10/31 completed Not Available Not Available Not Available losartan 25 mg tablet Take 0.5 tablets every day by oral route. active Not Available Not Available No t Available ergocalci ferol (vitamin D2) 1,250 mcg (50,000 unit) capsule Take 1 capsule every week by oral route. active Not Available Not Available No t Available ibuprofen 600 mg tablet NEEDED active Not Available Not Available No t Available risperido ne 0.5 mg tablet QD active Not Available Not Available Not Available escitalop jose carlos 10 mg tablet active Not Available Not Available Not Available ezetimibe 10 mg tablet Take 1 tablet every day by oral route. active Not Available Not Available No t Available rosuvasta tin 20 mg tablet Take 1 tablet every day by oral route in the evening. active Not Available Not Available No t Available escitalop jose carlos 5 mg tablet 09/04 completed Not Available Not Available Not Available nitrofura ntoin monohydra te/macroc rystals 100 mg capsule Take 1 capsule every 12 hours by oral route. active pt is no longer taking 03/19/23 SA Not Available Not Available Not Available Guy 3 Fish Oil 684 mg-1,200 mg capsule,d elayed release Take every day by oral route. 09/11 completed Not Available Not Available Not Available Fish Oil 360 mg-1,200 mg capsule,d elayed release active Not Available Not Available Not Available Nexlizet 180 mg-10 mg tablet Take 1 tablet every day by oral route. 07/22 completed This was not covered by [facility]. Per Dr. COTTO, add Zetia 10mg qd - cji Not Available Not Available Not Available Vitals Date Recorded Body height Body mass index (BMI) Body weight Heart rate Oxygen saturation Oxygen saturation in Arterial blood by Pulse oximetry Systolic blood pressure Diastolic blood pressure Provider Name and Address Organization Details Last Updated DateTime 2 160.02 cm 39.5 kg/m2 679287. 1 g 81 /min 95 % 95 % 120 mm[Hg] 90 mm[Hg] Nehal Rubio [facility] 2 10:56:29 Date Recorded Body height Body mass index (BMI) Body weight Oxygen saturation Oxygen saturation in Arterial blood by Pulse oximetry Heart rate Systolic blood pressure Diastolic blood pressure Provider Name and Address Organization Details Last Updated DateTime 3 160.02 cm 41.3 kg/m2 824697. 38 g 98 % 98 % 58 /min 104 mm[Hg] 64 mm[Hg] JUAN JOSÉ KRYSTAL [facility] 3 10:40:18 Date Recorded Body height Body mass index (BMI) Body weight Heart rate Oxygen saturation Oxygen saturation in Arterial blood by Pulse oximetry Systolic blood pressure Diastolic blood pressure Provider Name and Address Organization Details Last Updated DateTime 3 160.02 cm 40.2 kg/m2 619063. 47 g 72 /min 98 % 98 % 107 mm[Hg] 65 mm[Hg] Hanna Tian [facility] 3 10:31:24 Date Recorded Body height Body mass index (BMI) Body weight Heart rate Oxygen saturation Oxygen saturation in Arterial blood by Pulse oximetry Systolic blood pressure Diastolic blood pressure Provider Name and Address Organization Details Last Updated DateTime 4 160.02 cm 40.5 kg/m2 841278. 93 g 75 /min 99 % 99 % 123 mm[Hg] 81 mm[Hg] Hanna Tian [facility] 4 11:56:52 Date Recorded Body height Body mass index (BMI) Body weight Heart rate Oxygen saturation Oxygen saturation in Arterial blood by Pulse oximetry Systolic blood pressure Diastolic blood pressure Provider Name and Address Organization Details Last Updated DateTime 4 160.02 cm 39.3 kg/m2 176186. 07 g 75 /min 99 % 99 % 110 mm[Hg] 60 mm[Hg] Odalis Sinha [place] [facility] 4 10:19:57 Social History Question Answer Notes LastModified by [employer] [facility] Details LastModified Time Tobacco Smoking Status Never Smoker Not Available [facility] 09/04/2020 03:30:42 What Is Your Level Of Caffeine Consumption? None [id number] Information not available 09/04/2020 How Much Tobacco Do You Chew? None [id number] Information not available 09/04/2020 Which Illicit Or Recreational Drugs Have You Used? None [id number] Information not available 09/04/2020 What Was The Date Of Your Most Recent Tobacco Screening? 08/04/2018 [id number] Information not available 09/04/2020 How Much Tobacco Do You Smoke? No [id number] Information not available 09/04/2020 How Many Years Have You Smoked Tobacco? 0 [id number] Information not available 09/04/2020 Sex: Unknown Functional Status Question Answer Note LastModified by [facility] Details LastModified Time What is your level of alcohol consumption? None [id number] Information not available 09/04/2020 Do you or have you ever used smokeless tobacco? Never used smokeless tobacco [id number] Information not available 09/04/2020 Do you or have you ever used e-cigarettes or vape? Never used electronic cigarettes [id number] Information not available 09/04/2020 Mental Status None recorded. Family History Nothing Reported. Medical History Condition Response Congestive Heart Failure (CHF) Y Hyperlipidemia Y Hypertension Y Sleep Apnea Y Gynecological HistoryNo gynecological history recorded. Obstetrics History GPAL:G 0 P 0 0 0 0 Past Encounters Encounter ID Performer Location Encounter Start Date Encounter Closed Date Diagnosis/Indication Diagnosis SNOMED-CT Code Diagnosis ICD10 Code Diagnosis Note [id number] MD [facility] [address] [place] [address] 08/04/2018 10:54:07 08/04/2018 11:49:18 Benign essential hypertension 6722559 I10 Patient's blood pressure is {{well-con trolled no t well-contr olled*}} on present medical therapy. Patient is {{tolerati ng, without difficulty ,* having side effects with}} the current medication s. I have {{not made made the following* }} changes to the current regimen: amlodipine 2.5 mg QD{{ Patie nt is advised to maintain a blood pressure diary.*}} Cont low Na diet.labs, ECHO Essential hypertension 67981962 I10 [id number] MD [facility] [address] [facility] [place] [address] 09/08/2018 11:38:55 09/08/2018 13:54:17 Benign essential hypertension 6512277 I10 Patient's blood pressure is {{well-con trolled* n ot well-contr olled}} on present medical therapy. Patient is {{tolerati ng, without difficulty ,* having side effects with}} the current medication s. I have {{not made made the following* }} changes to the current regimen: amlodipine 2.5 mg QD{{ Patie nt is advised to maintain a blood pressure diary.*}} Cont low Na diet.ECHO showed normal LV systolic function and diastoic dysfunctio n Diastolic dysfunction 35 47155 I50.30 [id number] MD [facility] [address] [place] [address] 12/15/2018 10:48:26 12/15/2018 11:57:02 Diastolic dysfunction 8498259 I50.30 Pt had ECHO which showed normal LV systolic function and diastolic dysfunctio nshe remains asymptomat ic will cont ACEI Benign ess ential hypertension 0125911 I10 Patient's blood pressure is {{well-con trolled* n ot well-contr olled}} on present medical therapy. Patient is {{tolerati ng, without difficulty ,* having side effects with}} the current medication s. I have {{not made made the following* }} changes to the current regimen: amlodipine 2.5 mg QD{{ Patie nt is advised to maintain a blood pressure diary.*}} Cont low Na diet.ECHO showed normal LV systolic function and diastoic dysfunctio n [id number] MD [facility] [address] [place] [address] 06/15/2019 10:51:21 06/15/2019 12:12:15 Diastolic dysfunction 3424680 I50.30 Pt had ECHO which showed normal LV systolic function and diastolic dysfunctio nshe remains asymptomat ic will cont ACEI Benign ess ential hypertension 9536663 I10 Patient's blood pressure is {{well-con trolled* n ot well-contr olled}} on present medical therapy. Patient is {{tolerati ng, without difficulty ,* having side effects with}} the current medication s. I have {{not made made the following* }} changes to the current regimen: amlodipine 2.5 mg QD{{ Patie nt is advised to maintain a blood pressure diary.*}} Cont low Na diet.ECHO showed normal LV systolic function and diastoic dysfunctio n Dyslipidemia 093264341 E 78.5 Needs to keep LDL less than 70, and HDL more than 40 will repeat lipids [id number] MD [facility] [address] [place] [address] 12/06/2019 15:19:35 12/06/2019 15:50:26 Diastolic dysfunction 0190029 I50.30 Pt had ECHO which showed normal LV systolic function and diastolic dysfunctio nshe remains asymptomat ic will cont ACEI Benign ess ential hypertension 4202944 I10 Patient's blood pressure is {{well-con trolled* n ot well-contr olled}} on present medical therapy. Patient is {{tolerati ng, without difficulty ,* having side effects with}} the current medication s. I have {{not made made the following* }} changes to the current regimen: amlodipine 2.5 mg QD{{ Patie nt is advised to maintain a blood pressure diary.*}} Cont low Na diet.ECHO showed normal LV systolic function and diastoic dysfunctio n Dyslipidemia 717908508 E 78.5 Needs to keep LDL less than 70, and HDL more than 40 will repeat lipids [id number] Darien Clair, MD [place] [facility] [address] [place] [address] 06/05/2020 15:45:10 06/05/2020 16:27:36 Diastolic dysfunction 4893424 I50.30 Pt had ECHO which showed normal LV systolic function and diastolic dysfunctio nshe remains asymptomat ic will cont ACEI Benign ess ential hypertension 1435023 I10 Patient's blood pressure is {{well-con trolled* n ot well-contr olled}} on present medical therapy. Patient is {{tolerati ng, without difficulty ,* having side effects with}} the current medication s. I have {{not made made the following* }} changes to the current regimen: amlodipine 2.5 mg QD{{ Patie nt is advised to maintain a blood pressure diary.*}} Cont low Na diet.ECHO showed normal LV systolic function and diastoic dysfunctio n Dyslipidemia 153126487 E 78.5 Needs to keep LDL less than 70, and HDL more than 40 will repeat lipids [id number] MD [facility] [address] [place] [address] 10/31/2020 11:47:46 10/31/2020 13:09:19 Diastolic dysfunction 4099428 I50.30 Pt had ECHO which showed normal LV systolic function and diastolic dysfunctio nshe remains asymptomat ic Cont ACEI Benign ess ential hypertension 6556470 I10 Patient's blood pressure is {{well-con trolled* n ot well-contr olled}} on present medical therapy. Patient is {{tolerati ng, without difficulty ,* having side effects with}} the current medication s. I have {{not made made the following* }} changes to the current regimen: amlodipine 2.5 mg QD{{ Patie nt is advised to maintain a blood pressure diary.*}} Cont low Na diet.ECHO showed normal LV systolic function and diastoic dysfunctio n Dyslipidemia 972922951 E 78.5 Patient's hyperlipid emia is {{well-con trolled* n ot well-contr olled}} on present medical therapy. Patient was advised to eat a low-fat diet. Patient is {{tolerati ng, without difficulty ,* having side effects with}} the current medication s. I have {{not made* made the following} } changes to the current regimen. FLP [id number] MD [facility] [address] [place] [address] 04/24/2021 11:06:12 04/24/2021 11:39:49 Diastolic dysfunction 0854650 I50.30 Pt had ECHO which showed normal LV systolic function and diastolic dysfunctio nshe remains asymptomat ic Cont ACEI Benign ess ential hypertension 3523469 I10 Patient's blood pressure is {{well-con trolled* n ot well-contr olled}} on present medical therapy. Patient is {{tolerati ng, without difficulty ,* having side effects with}} the current medication s. I have {{not made* made the following} } changes to the current regimen. {{ Patient is advised to maintain a blood pressure diary.*}} Cont low Na diet.ECHO showed normal LV systolic function and diastolic dysfunctio n Dyslipidemia 000955627 E 78.5 Patient's hyperlipid emia is{{well-c ontrolled not well-contr olled*}} on present medical therapy. Patient was advised to eat a low-fat diet. Patient is {{tolerati ng, without difficulty ,* having side effects with}} the current medication s. I have {{not made* made the following} } changes to the current regimen. FLP Obstructiv e sleep apnea syndrome 87993122 G47.33 Now using CPAP nightlyMan aged by Tracey [id number] MD [facility] [address] [place] [address] 09/11/2021 10:46:07 09/11/2021 13:49:55 Diastolic dysfunction 0377781 I50.30 Pt had ECHO which showed normal LV systolic function and diastolic dysfunctio nshe remains asymptomat icCont ARB Benign ess ential hypertension 7771592 I10 Patient's blood pressure is {{well-con trolled* n ot well-contr olled}} on present medical therapy. Patient is {{tolerati ng, without difficulty ,* having side effects with}} the current medication s. I have {{not made made the following* }} changes to the current regimen. change Lisinopril to Cozaar{{ P atient is advised to maintain a blood pressure diary.*}} Cont low Na diet.ECHO showed normal LV systolic function and diastolic dysfunctio n Dyslipidemia 612262878 E 78.5 Patient's hyperlipid emia is{{well-c ontrolled not well-contr olled*}} on present medical therapy. Patient was advised to eat a low-fat diet. Patient is {{tolerati ng, without difficulty ,* having side effects with}} the current medication s. I have {{not made* made the following} } changes to the current regimen. FLP Obstructiv e sleep apnea syndrome 73932875 G47.33 Now using CPAP nightlyMan [place] [id number] MD [facility] [address] [place] [address] 03/11/2022 14:02:43 03/11/2022 14:37:52 Diastolic dysfunction 0188427 I50.30 Pt had ECHO which showed normal LV systolic function and diastolic dysfunctio nshe remains asymptomat icCont ARB Benign ess ential hypertension 5869759 I10 Patient's blood pressure is {{well-con trolled* n ot well-contr olled}} on present medical therapy. Patient is {{tolerati ng, without difficulty ,* having side effects with}} the current medication s. I have {{not made made the following* }} changes to the current regimen. change Lisinopril to Cozaar{{ P atient is advised to maintain a blood pressure diary.*}} Cont low Na diet.ECHO showed normal LV systolic function and diastolic dysfunctio n Dyslipidemia 456905379 E 78.5 Patient's hyperlipid emia is{{well-c ontrolled not well-contr olled*}} on present medical therapy. Patient was advised to eat a low-fat diet. Patient is {{tolerati ng, without difficulty ,* having side effects with}} the current medication s. I have {{not made* made the following} } changes to the current regimen. FLP Obstructiv e sleep apnea syndrome 04236136 G47.33 Now using CPAP nightlyMan aged by Dothager Essential hypertension 43045486 I10 [id number] Jose Marcelino MD [facility] [address] [facility] [place] [address] 09/04/2022 10:49:09 09/04/2022 12:01:04 Diastolic dysfunction 8729008 I50.30 Pt had ECHO which showed normal LV systolic function and diastolic dysfunctio nshe remains asymptomat icCont ARB Benign ess ential hypertension 9964658 I10 Patient's blood pressure is {{well-con trolled* n ot well-contr olled}} on present medical therapy. Patient is {{tolerati ng, without difficulty ,* having side effects with}} the current medication s. I have {{not made made the following* }} changes to the current regimen. change Lisinopril to Cozaar{{ P atient is advised to maintain a blood pressure diary.*}} Cont low Na diet.ECHO showed normal LV systolic function and diastolic dysfunctio n Dyslipidemia 840042355 E 78.5 Now well controlled Obstructiv e sleep apnea syndrome 46700742 G47.33 Now using CPAP nightlyMan aged by Dothager Essential hypertension 26847537 I10 Dyspnea on exertion 6084 5006 R06.09 Treadmill Myoview Stress test, has high Fairview Risk score. Has Known CAD, or CAD risk equivalent . To look for any ischemia. [id number] Jose Marcelino MD [facility] [address] [place] [address] 03/19/2023 10:24:08 03/19/2023 11:17:15 Diastolic dysfunction 6235901 I50.30 Pt had ECHO which showed normal LV systolic function and diastolic dysfunctio nshe remains asymptomat icCont ARB Benign ess ential hypertension 9179104 I10 Patient's blood pressure is {{well-con trolled* n ot well-contr olled}} on present medical therapy. Patient is {{tolerati ng, without difficulty ,* having side effects with}} the current medication s. I have {{not made made the following* }} changes to the current regimen. change Lisinopril to Cozaar{{ P atient is advised to maintain a blood pressure diary.*}} Cont low Na diet.ECHO showed normal LV systolic function and diastolic dysfunctio n Dyslipidemia 641794148 E 78.5 Now well controlled Obstructiv e sleep apnea syndrome 43905921 G47.33 Now using CPAP nightlyMan aged by Tracey Essential hypertension 52431483 I10 Dyspnea on exertion 6084 5006 R06.09 Treadmill Myoview Stress test, has high Fairview Risk score. Has Known CAD, or CAD risk equivalent . To look for any ischemia. [id number] Jose Marcelino MD [facility] [place] [address] 09/17/2023 10:24:12 09/17/2023 11:06:18 Diastolic dysfunction 9899084 I50.30 Pt had ECHO which showed normal LV systolic function and diastolic dysfunctio nshe remains asymptomat icCont NICOLE inh Benign ess ential hypertension 0160973 I10 well controlled today Dyslipidemia 796970190 E 78.5 Now well controlled *Last LDL was 84 done on 01/13/22.P t takes ezetimibe 10 mg and rosuvastat in 20 mg.repeat blood work Obstructiv e sleep apnea syndrome 59756521 G47.33 Now using CPAP nightlyMan aged by Tracey [id number] Jose Marcelino MD [facility] [place] [address] 03/15/2024 11:42:26 03/15/2024 12:19:05 Diastolic dysfunction 6763779 I50.30 Pt had ECHO which showed normal LV systolic function and diastolic dysfunctio n Benign ess ential hypertension 1483274 I10 well controlled today Dyslipidemia 562427855 E 78.5 Now well controlled *Last LDL was 84 done on 01/13/22.P t takes ezetimibe 10 mg and rosuvastat in 20 mg.repeat blood work Obstructiv e sleep apnea syndrome 25417838 G47.33 Now using CPAP nightlyMan aged by Tracey [id number] Jose Marcelino MD [facility] [place], [place] [id number] 09/10/2024 10:04:22 09/10/2024 10:45:04 Diastolic dysfunction [id number] I50.30 Obtain echo to evaluate for structural /functiona l disease. Benign ess ential hypertension 7809603 I10 well controlled today Dyslipidemia [id number] E 78.5 Now well controlled *Last LDL was 84 done on 01/13/22.P t takes ezetimibe 10 mg and rosuvastat in 20 mg.repeat blood work Obstructiv e sleep apnea syndrome [id number] G47.33 Now using CPAP nightlyMan aged by [employer] Concerns Section Related Observation LastModified by Organization Detai ls LastModified Time None Recorded Concern Status LastModified by Organization Details LastModified Time None Recorded Advance Directives Directive None Recorded Payers Insurance Date Sequence Insurance Name Policy Number Policy Jackson Covered Member ID Jackson Member ID Guarantor Name 09/14/2024 2 [place] [facility] Petrona Pemberton [id number] Petrona Pemberton 09/13/2024 1 [place] (MED[place]ARE[place] Petrona Pemberton [id number] Petrona Pemberton Notes Date Note Type Note Provider Name and Address Organization Details Recorded Time 09/04/2022 text/html 09/04/22CC : Car diac follow up, dyspnea on exertionHPI: [id number] -Monegasque Female with h/o Hypertension, schizophrenia, mild developmental delay and Obesity is here for 6 month follow up. She was last seen in the clinic on 03/11/22, since then she is in assisted Denies chest pain.Denies shortness of breath at rest. Has more dyspnea on exertion.No orthopnea. No PNDs.Denies heart palpitations.Denies dizziness. Denies syncope or near syncope.No ankle or leg edema.No major bleeding events.No reported side effects from medications. Taking medications as prescribed with no missed doses.Denies snoring, daytime somnolence and AM headache.*Last LDL was 84 done on 01/13/22.Pt takes rosuvastatin 20 mg. Previously:*Had ECHO done in 03/06/21 showed LV chamber size is normal,LV wall thickness is normal,LV systolic function is normal,the estimated LVEF is 60-65%(normal),there is increased left atrial pressure and grade II diastolic dysfunction,there is trivial aortic regurgitation,there is mild thickening of the mitral valve anterior leaflet,there is mild tricuspid regurgitation. Results from this visit, or from the pastCHEM (02/21/21): k 4.2, cR 0.75, tsh 2.8,LIPIDS (02/21/21): TC 220, TG 107, HDL 57, LDL 142CBC (02/21/21): hGB 12.9, PLT 27140: Glucose 78,BUN 14,Creati 0.81,Na 136,K 4.2,08/13/19 : Glucose 78,BUN 14,Creati 0.81,Na 136,K 4.2,Cl 101,Co2 27,Ca 9.4,AST 16,ALT 14,Alkaline phosphatase 56,AST 16,ALT 14,Alkaline phosphatase : Na 139 ,K 102, CL 102, CO2 29, GLU 103 , BUN 12, CR 0.8, AST 16, ALT : TC 198 ,TG 101 ,HDL 52 ,LDL 63912: HB 12.1, HT 38.: Na 140 ,K 4.5 ,CL 104 ,CO2 27 ,GLU 76,BUN 13, CR 0.7,TC 167 ,TG 71,HDL 49 ,LDL 104,09/14/17:SOD 141,K 4.6,CL 102,CO2 22,GLU 86,BUN 14,CR 0.71,AST 18,ALT 13.EKG 03/11/22: NSR, within normal limitsEKG : NSR, within normal limitsEKG 10/31/20: NSR, within normal limitsEKG 06/05/20: NSR, within normal limitsEKG 12/06/19: NSR, within normal limitsEKG 06/15/19: NSR, within normal limitsEKG 12/15/18: NSR, within normal limitsEKG 08/04/18: NSR, within normal limitsECHO 03/06/21:LV chamber size is normal,LV wall thickness is normal,LV systolic function is normal,the estimated LVEF is 60-65%(normal),there is increased left atrial pressure and grade II diastolic dysfunction,there is trivial aortic regurgitation,there is mild thickening of the mitral valve anterior leaflet,there is mild tricuspid regurgitation.ECHO 08/31/18:LV chamber size is normal,LV wall thickness is normal,LV systolic function is hyperdynamic,EF 65-70%,there is increased left atrial pressure and grade II diastolic dysfunction. Jose Marcelino MD [address] [place], [address], [facility] 09/04/2022 12:00:34 03/19/2023 text/html 03/19/23CC : Car dia follow upHPI: [id number] -Monegasque Female with h/o Hypertension, schizophrenia, mild developmental delay and Obesity is here for 6 month follow up with ECHO and stress test results. She was last seen in the clinic on 09/04/22, since then she gained 20 poundsShe denies ER visits and hospitalizations since she was last seen. Today reports:Denies chest pain.Denies shortness of breath at rest. Has mild dyspnea on exertion.No orthopnea. No PNDs.Denies heart palpitations.Denies dizziness. Denies syncope or near syncope.No ankle or leg edema.No major bleeding events.No reported side effects from medications. Taking medications as prescribed with no missed doses.Denies snoring, daytime somnolence and AM headache.*Last LDL was 84 done on 01/13/22.Pt takes rosuvastatin 20 mg. *Had ECHO on 10/01/22 showed LV chamber size is normal,LV wall thickness is normal,the estimated LVEF is 60-65%,the aortic valve is mildly calcified,there is trivial aortic regurgitation,there is mild aortic valve stenosis,there is mild thickening of the mitral valve anterior leaflet,there is mild tricuspid regurgitation,mild elevation of estimated RV systolic pressure, estimated RVSP systolic pressure is 40 mm Hg. *Had Positive stress test on 09/16/22. Results from this visit, or from the pastCHEM (02/21/21): k 4.2, cR 0.75, tsh 2.8,LIPIDS (02/21/21): TC 220, TG 107, HDL 57, LDL 142CBC (02/21/21): hGB 12.9, PLT 73772: Glucose 78,BUN 14,Creati 0.81,Na 136,K 4.2,08/13/19 : Glucose 78,BUN 14,Creati 0.81,Na 136,K 4.2,Cl 101,Co2 27,Ca 9.4,AST 16,ALT 14,Alkaline phosphatase 56,AST 16,ALT 14,Alkaline phosphatase : Na 139 ,K 102, CL 102, CO2 29, GLU 103 , BUN 12, CR 0.8, AST 16, ALT : TC 198 ,TG 101 ,HDL 52 ,LDL 33453/: HB 12.1, HT 38.: Na 140 ,K 4.5 ,CL 104 ,CO2 27 ,GLU 76,BUN 13, CR 0.7,TC 167 ,TG 71,HDL 49 ,LDL 104,09/14/17:SOD 141,K 4.6,CL 102,CO2 22,GLU 86,BUN 14,CR 0.71,AST 18,ALT 13.EKG 03/11/22: NSR, within normal limitsEKG : NSR, within normal limitsEKG 10/31/20: NSR, within normal limitsEKG 06/05/20: NSR, within normal limitsEKG 12/06/19: NSR, within normal limitsEKG 06/15/19: NSR, within normal limitsEKG 12/15/18: NSR, within normal limitsEKG 08/04/18: NSR, within normal limitsECHO 03/06/21:LV chamber size is normal,LV wall thickness is normal,LV systolic function is normal,the estimated LVEF is 60-65%(normal),there is increased left atrial pressure and grade II diastolic dysfunction,there is trivial aortic regurgitation,there is mild thickening of the mitral valve anterior leaflet,there is mild tricuspid regurgitation.ECHO 08/31/18:LV chamber size is normal,LV wall thickness is normal,LV systolic function is hyperdynamic,EF 65-70%,there is increased left atrial pressure and grade II diastolic dysfunction. Jose Marcelino MD [address] [place], [address], [facility] - [facility] 03/19/2023 11:14:26 09/17/2023 text/html 09/17/23CC : Car diac follow up dyspnea on exertionHPI: [id number] -Monegasque Female with h/o Hypertension, dyslipidemia , schizophrenia, LUIS, mild developmental delay and Obesity is here for follow up. She was last seen in the clinic on 03/19/23, since then she is doing well. She denied chest pain or dyspnea on exertion. *Last LDL was 84 done on 01/13/22.Pt takes ezetimibe 10 mg and rosuvastatin 20 mg.She denies ER visits and hospitalizations since she was last seen. Today reports:Denies chest pain.Denies shortness of breath at rest. Has mild dyspnea on exertion.No orthopnea. No PNDs.Denies heart palpitations.Denies dizziness. Denies syncope or near syncope.No ankle or leg edema.No major bleeding events.No reported side effects from medications. Taking medications as prescribed with no missed doses.yes snoring, daytime somnolence and AM headache.*Last LDL was 84 done on 01/13/22.Pt takes ezetimibe 10 mg and rosuvastatin 20 mg. Previously:*Had ECHO on 10/01/22 showed LV chamber size is normal,LV wall thickness is normal,the estimated LVEF is 60-65%,the aortic valve is mildly calcified,there is trivial aortic regurgitation,there is mild aortic valve stenosis,there is mild thickening of the mitral valve anterior leaflet,there is mild tricuspid regurgitation,mild elevation of estimated RV systolic pressure, estimated RVSP systolic pressure is 40 mm Hg. *Had Positive stress test on 09/16/22. Results from this visit, or from the pastCHEM (02/21/21): k 4.2, cR 0.75, tsh 2.8,LIPIDS (02/21/21): TC 220, TG 107, HDL 57, LDL 142CBC (02/21/21): hGB 12.9, PLT 99092: Glucose 78,BUN 14,Creati 0.81,Na 136,K 4.2,08/13/19 : Glucose 78,BUN 14,Creati 0.81,Na 136,K 4.2,Cl 101,Co2 27,Ca 9.4,AST 16,ALT 14,Alkaline phosphatase 56,AST 16,ALT 14,Alkaline phosphatase : Na 139 ,K 102, CL 102, CO2 29, GLU 103 , BUN 12, CR 0.8, AST 16, ALT : TC 198 ,TG 101 ,HDL 52 ,LDL 15329: HB 12.1, HT 38.410/19/18: Na 140 ,K 4.5 ,CL 104 ,CO2 27 ,GLU 76,BUN 13, CR 0.7,TC 167 ,TG 71,HDL 49 ,LDL 104,09/14/17:SOD 141,K 4.6,CL 102,CO2 22,GLU 86,BUN 14,CR 0.71,AST 18,ALT 13.EKG 03/11/22: NSR, within normal limitsEKG : NSR, within normal limitsEKG 10/31/20: NSR, within normal limitsEKG 06/05/20: NSR, within normal limitsEKG 12/06/19: NSR, within normal limitsEKG 06/15/19: NSR, within normal limitsEKG 12/15/18: NSR, within normal limitsEKG 08/04/18: NSR, within normal limitsECHO 03/06/21:LV chamber size is normal,LV wall thickness is normal,LV systolic function is normal,the estimated LVEF is 60-65%(normal),there is increased left atrial pressure and grade II diastolic dysfunction,there is trivial aortic regurgitation,there is mild thickening of the mitral valve anterior leaflet,there is mild tricuspid regurgitation.ECHO 08/31/18:LV chamber size is normal,LV wall thickness is normal,LV systolic function is hyperdynamic,EF 65-70%,there is increased left atrial pressure and grade II diastolic dysfunction. IVANIA MANZO [place], [place] - [facility] 09/17/2023 11:02:20 03/15/2024 text/html 03/15/24CC : Car diac follow up, dyspnea on exertionHPI: [id number] -[place]onegas[place] Female with h/o Hypertension, dyslipidemia , schizophrenia, LUIS, mild developmental delay and Obesity is here for 6 month follow up. She was last seen in the clinic on 09/17/23, since then she is more active nowShe denies ER visits and hospitalizations since she was last seen. Denies chest pain.Denies shortness of breath at rest. Has mild dyspnea on exertion.No orthopnea. No PNDs.Denies heart palpitations.Denies dizziness. Denies syncope or near syncope.No ankle or leg edema.No major bleeding events.No reported side effects from medications. Taking medications as prescribed with no missed doses.Denies snoring, daytime somnolence and AM headache.*Last LDL was 84 done on 01/13/22.Pt takes rosuvastatin 20 mg and ezetimibe 10 mg daily. Previously:*Had ECHO on 10/01/22 showed LV chamber size is normal,LV wall thickness is normal,the estimated LVEF is 60-65%,the aortic valve is mildly calcified,there is trivial aortic regurgitation,there is mild aortic valve stenosis,there is mild thickening of the mitral valve anterior leaflet,there is mild tricuspid regurgitation,mild elevation of estimated RV systolic pressure, estimated RVSP systolic pressure is 40 mm Hg. *Had Positive stress test on 09/16/22. Results from this visit, or from the pastCHEM (02/21/21): k 4.2, cR 0.75, tsh 2.8,LIPIDS (02/21/21): TC 220, TG 107, HDL 57, LDL 142CBC (02/21/21): hGB 12.9, PLT 35456: Glucose 78,BUN 14,Creati 0.81,Na 136,K 4.2,08/13/19 : Glucose 78,BUN 14,Creati 0.81,Na 136,K 4.2,Cl 101,Co2 27,Ca 9.4,AST 16,ALT 14,Alkaline phosphatase 56,AST 16,ALT 14,Alkaline phosphatase : Na 139 ,K 102, CL 102, CO2 29, GLU 103 , BUN 12, CR 0.8, AST 16, ALT : TC 198 ,TG 101 ,HDL 52 ,LDL 73094/: HB 12.1, HT 38.410/: Na 140 ,K 4.5 ,CL 104 ,CO2 27 ,GLU 76,BUN 13, CR 0.7,TC 167 ,TG 71,HDL 49 ,LDL 104,09/14/17:SOD 141,K 4.6,CL 102,CO2 22,GLU 86,BUN 14,CR 0.71,AST 18,ALT 13.EKG 03/11/22: NSR, within normal limitsEKG : NSR, within normal limitsEKG 10/31/20: NSR, within normal limitsEKG 08/04/20: NSR, within normal limitsEKG 12/06/19: NSR, within normal limitsEKG 06/15/19: NSR, within normal limitsEKG 12/15/18: NSR, within normal limitsEKG 08/04/18: NSR, within normal limitsECHO 03/06/21:LV chamber size is normal,LV wall thickness is normal,LV systolic function is normal,the estimated LVEF is 60-65%(normal),there is increased left atrial pressure and grade II diastolic dysfunction,there is trivial aortic regurgitation,there is mild thickening of the mitral valve anterior leaflet,there is mild tricuspid regurgitation.ECHO 08/31/18:LV chamber size is normal,LV wall thickness is normal,LV systolic function is hyperdynamic,EF 65-70%,there is increased left atrial pressure and grade II diastolic dysfunction. Jose Marcelino MD [address] [place], [address], [facility] - [facility] 03/15/2024 12:14:08 09/10/2024 text/html 09/10/24CC : Cardiac follow upHPI: [id number] -[place]one[place] Female with h/o Hypertension, dyslipidemia , schizophrenia, LUIS, mild developmental delay and Obesity is here for 6 month follow up. She was last seen in the clinic on 03/15/24, since then she lost few poundsShe denies ER visits and hospitalizations since she was last seen. today's visit: CC: pt states no concerns at this timeDenies chest pain.Denies shortness of breath at rest. Has mild dyspnea on exertion.No orthopnea. No PNDs.Denies heart palpitations.Denies dizziness. Denies syncope or near syncope.No ankle or leg edema.No major bleeding events.No reported side effects from medications. Taking medications as prescribed with no missed doses.Denies snoring, daytime somnolence and AM headache.*Last LDL was 84 done on 01/13/22.Pt takes rosuvastatin 20 mg and ezetimibe 10 mg daily. Previously:*Had ECHO on 10/01/22 showed LV chamber size is normal,LV wall thickness is normal,the estimated LVEF is 60-65%,the aortic valve is mildly calcified,there is trivial aortic regurgitation,there is mild aortic valve stenosis,there is mild thickening of the mitral valve anterior leaflet,there is mild tricuspid regurgitation,mild elevation of estimated RV systolic pressure, estimated RVSP systolic pressure is 40 mm Hg. *Had Positive stress test on 09/16/22. Results from this visit, or from the pastCHEM (02/21/21): k 4.2, cR 0.75, tsh 2.8,LIPIDS (02/21/21): TC 220, TG 107, HDL 57, LDL 142CBC (02/21/21): hGB 12.9, PLT 57856: Glucose 78,BUN 14,Creati 0.81,Na 136,K 4.2,08/13/19 : Glucose 78,BUN 14,Creati 0.81,Na 136,K 4.2,Cl 101,Co2 27,Ca 9.4,AST 16,ALT 14,Alkaline phosphatase 56,AST 16,ALT 14,Alkaline phosphatase : Na 139 ,K 102, CL 102, CO2 29, GLU 103 , BUN 12, CR 0.8, AST 16, ALT : TC 198 ,TG 101 ,HDL 52 ,LDL 49251: HB 12.1, HT 38.410: Na 140 ,K 4.5 ,CL 104 ,CO2 27 ,GLU 76,BUN 13, CR 0.7,TC 167 ,TG 71,HDL 49 ,LDL 104,09/14/17:SOD 141,K 4.6,CL 102,CO2 22,GLU 86,BUN 14,CR 0.71,AST 18,ALT 13.EKG 03/11/22: NSR, within normal limitsEKG : NSR, within normal limitsEKG 10/31/20: NSR, within normal limitsEKG 06/05/20: NSR, within normal limitsEKG 12/06/19: NSR, within normal limitsEKG 06/15/19: NSR, within normal limitsEKG 12/15/18: NSR, within normal limitsEKG 08/04/18: NSR, within normal limitsECHO 03/06/21:LV chamber size is normal,LV wall thickness is normal,LV systolic function is normal,the estimated LVEF is 60-65%(normal),there is increased left atrial pressure and grade II diastolic dysfunction,there is trivial aortic regurgitation,there is mild thickening of the mitral valve anterior leaflet,there is mild tricuspid regurgitation.ECHO 08/31/18:LV chamber size is normal,LV wall thickness is normal,LV systolic function is hyperdynamic,EF 65-70%,there is increased left atrial pressure and grade II diastolic dysfunction. Jose Marcelino MD [address] [place], [address], [facility] 09/10/2024 10:43:23 OBGyn Episode No OBEpisode recorded.
--- OUTSIDE RECORDS SUMMARY | 2025-03-13 13:01 | XMS_ITS | Clinical Summary ---
Author Organization [facility] Address [address] [place] [address] Care Team Providers Care Tire Layer Name Role Phone Linda Puga MD Primary Care Provider [phone] Allergies No known active allergies Medications amlodipine 2.5 MG tablet Take 2.5 mg by mouth daily. Active lisinopril-hydro chlorothiazide 10-12.5 MG tablet Take 1 tablet by mouth daily. Active vitamin D2, ergocalciferol, [address]354 UNITS capsule Take 50,000 Units by mouth. Active fish oil 1000 MG Cap capsule Take 1,000 mg by mouth 2 (two) times daily. Active risperiDONE 0.25 MG tablet Take 0.25 mg by mouth daily. Active ibuprofen 600 MG tablet Take 1 tablet (600 mg total) by mouth every 6 (six) hours as needed for Pain. Take with food 30 tablet 10/28/2019 Active Encounters Date Type Department Care Team Description 01/27/2025 1:29 PM CDT - 01/27/2025 11:59 PM CDT Hospital En[facility] [place] [address] Kiah Bender, COTTRELL OPERATOR Discharge Disposition: Home or Self Care (Routine Discharge) 01/27/2025 Travel from Last 3 Months Family History Medical History Relation Comments Breast Cancer Maternal Aunt Relation Status Comments Father Alive Maternal Aunt Mother Alive Social History Tobacco Use Types Packs/Day Years Used Date Smoking Tobacco: Never Smokeless Tobacco: Never Alcohol Use Standard Drinks/Week Comments No 0 (1 standard drink = 0.6 oz pur e alcohol) AUDIT-C Answer Date Recorded Frequency of Alcohol Consumption Never 10/28/2019 Average Number of Drinks Not on file 019 Frequency of Binge Drinking Not on file 10/03 Comments No Sex and Gender Information Value Date Recorded Sex Assigned at Not on file Legal Sex Female 5:08 PM BINGO CHECKER Gender Identity Not on file Sexual Orientation Not on file Last Filed Vital Signs Vital Sign Reading Time Taken Comments Blood Pressure 137/83 12/21/2019 10:28 AM BINGO CHECKER Pulse 80 12/21/2019 10:28 AM BINGO CHECKER Temperature 36.8 C (98.2 F) 12/21/2019 10:28 AM BINGO CHECKER Respiratory Rate 18 12/21/2019 10:2 8 AM BINGO CHECKER Oxygen Saturation 97% 12/21/2019 10: 28 AM BINGO CHECKER Inhaled Oxygen Concentration - - Weight 100.1 kg (220 lb 10.9 oz) 2019 10:28 AM BINGO CHECKER Height 157.5 cm (5' 2 ) 12/21/2019 10:2 8 AM BINGO CHECKER Body Mass Index 40.36 12/21/2019 10:28 AM BINGO CHECKER Plan of Treatment Health Maintenance Due Date Last Done Comments Cervical Cancer Screening Pap Smear (Age 30 to 64) Every 3 Years 1975 Colorectal Cancer Screening Colonoscopy (10 Years) 1975 Annual Physical 1978 Hepatitis C 1993 Hepatitis B Vaccines (1 of 3 - 19+ 3-dose series) 1994 Cervical Cancer Screening Pap with HPV Testing (Age 30 to 64) Every 5 Years 2005 Cervical Cancer Screening with HPV 2005 COVID-19 Vaccine ( season) 2024 02/06/2021 Mammogram Screening 01/27/2027 01/27/2025, 02/15/2024, 01/25/2024, Additional history exists DTaP, Tdap and Td Vaccines (3 - Td or Tdap) 11/30/2029 11/30/2019, 08/08/1993, 1975, Additional history exists Meningococcal B Vaccine Aged Out No l onger eligible based on patient's age to complete this topic Meningococcal Vaccine Aged Out No cecilia shelly eligible based on patient's age to complete this topic Pneumococcal Vaccine: Pediatrics (0 to 5 Years) and At-Risk Patients (6 to 49 Years) Aged Out No longer eligible based on patient's age to complete this topic RSV Immunizations Under 20 Months Aged Out No longer eligible based on patient's age to complete this topic Procedures Procedure Name Priority Date/Time Associated Diagnosis Comments MG SCREENING W MOON SUSANA DIGI Routine 01/27/2025 2:20 PM CDT Encounter for screening mammogram for malignant neoplasm of breast from Last 3 Months Results * MG SCREENING W MOON SUSANA DIGI (01/27/2025 2:20 PM CDT) Anatomical Region Laterality Modality Breast Bilateral Mammography 01/27/2025 4:10 PM CDT Impressions 01/27/2025 4:16 PM CDT IMPRESSION: No significant interval change. No mammographic evidence of malignancy. RECOMMENDATION: Routine ScreeningBilateral OVERALL IMAGING ASSESSMENT: ACR BI-RADS 1 - NEGATIVE. Ordered By: KIAH BENDER Interpreted By: Jose L Montgomery, 01/27/2025 4:10 PM Narrative 01/27/2025 4:16 PM CDT [facility] [address] [place] [address] EXAMINATION: MG SCREENING W MOON SUSANA DIGI INDICATIONS: Screening TECHNIQUE: Digital full field CC and MLO screening mammography bilaterally to include 3-D Tomosynthesis technique. This study was read with the assistance of a computer-aided detection system. HISTORY: No reported breast complaint. Family history of breast cancer. No documented personal or first degree family history of breast cancer. No documented prior breast procedure. COMPARISON: 02/15/2024, 01/25/2024, 01/23/2023, and 11/30/2020. TISSUE DENSITY: There are scattered areas of fibroglandular density. FINDINGS: No suspicious microcalcification or mass. No developing asymmetry or architectural distortion. No axillary adenopathy. us Kiah Bender COTTRELL OPERATOR MAMMO Final Result from Last 3 Months Insurance MEDICARE Care Teams Tire Layer Relationship Specialty Start Date End Date Linda Puga MD PCP - General FAMILY PRACTICE 10/28/19
--- OUTSIDE RECORDS SUMMARY | 2025-03-13 13:01 | XMS_ITS | Encounter Summary ---
Author Organization [facility] Healthcare Address [address] [place] [address] Care Team Providers Care Site Surveyor Name Role Phone Ian Morley MD Primary Care Provider + Encounter Details Date Type Department Care Team (Late st Contact Info) Description 01/30/2025 Results Follow-Up [facility] Primary Care [address] [place] [address] Ian Morley MD [address] [place], [place] [id number] Social History Tobacco Use Types Packs/Day Years Used Date Smoking Tobacco: Never Smokeless Tobacco: Never AUDIT-C Answer Date Recorded Q1: How often [...] on file Legal Sex Female 1:27 AM [employer]IEF Gender Identity Not on file Sexual Orientation Not on file documented as of this encounter Plan of Treatment Not on file documented as of this encounter Visit Diagnoses Not on filedocumented in this encounter Care Teams Site Surveyor Relationship Specialty Start Date End Date Ian Morley MD [address] [place] [address] PCP - General Internal Medicine 01/25/25 documented as of this encounter
--- OUTSIDE RECORDS SUMMARY | 2025-03-13 13:02 | XMS_ITS | Data Portability ---
Author Organization [place] [facility], Main Office Address [address] [place] [address] Care Team Providers Care Guide Alpine Name Role Phone AYAAN LEWIS Primary Care Provider AYAAN LEWIS Referring Provider [phone] EVER GRIMES-MONY Peña Primary Care Provider PATEL GRIMESP-CMONY Referring Provider Assessment Encounter Date Assessment Date Assessment LastModified by Organization Details LastModified Time 06/28/2024 06/28/2024 by x-ray and antony sánchez the patient is noted to have mild to moderate primary osteoarthritis of the right knee with some chronic pain. She had a shot of cortisone done elsewhere 2 weeks ago with the family practitioner this given her fairly good relief she still has some aching pain although she has not a very good historian due to her intellectual disability. The records management technician that is with her today states that she seems to have some continuing discomfort with certain activities. We talked about further options she has [facility] I did say we could try a course of physical therapy and maybe try some gel shots in 2 months they wanted to proceed we will get her set up for viscosupplementation injections in 2 months and in the meantime she will go through a course of physical therapy for her right knee pain. The patient and the caregiver voiced understanding and agree with the above plan they will call for any further problems difficulties or questions. Not available 06/28/2024 16:19:59 08/30/2024 08/30/2024 The patient has chronic right knee pain due to mild to moderate primary osteoarthritis. Under sterile conditions I injected the patient's right knee joint in the office with Orthovisc injection number 1. I will see her back next week for the 2nd injection right knee she voiced understanding as well as a caregiver, I will see them back next week for the 2nd injection they will call for any further problems difficulties or questions. Not available 08/30/2024 14:21:03 09/06/2024 09/06/2024 By previous x-ra y exam the patient is noted to have moderate primary osteoarthritis right knee joint. Under sterile conditions I injected the patient's right knee joint in the office today with Orthovisc injection number 2. I will see her back next week for the 3rd injection right knee. She and her caregiver voiced understanding and agree with the above plan they will call for any further problems difficulties or questions. Not available 09/06/2024 14:43:07 09/13/2024 09/13/2024 Patient has mode rately advanced primary osteoarthritis of the right knee joint. Under sterile conditions I injected the patient's right knee joint in the office today with Orthovisc injection number 3. The patient tolerated the procedure well. I will see her back as needed we can do this again in 6 months versus cortisone in between. I discussed this today with her caregiver and they both voiced understanding and agree with the above plan. Not available 09/13/2024 15:22:59 12/22/2024 12/22/2024 The patient has right knee pain due to some mild to moderate primary osteoarthritis of the right knee joint a recent injury has aggravated her symptoms she seems to be fairly comfortable but does complain of pain on a regular basis per the patient's caregiver. It has been 3 months since she had gel shots which gave her excellent relief I think she has flared her knee pain up again. The patient wanted to proceed with a cortisone injection the caregiver also okayed this today. Therefore under sterile conditions I injected the patient's right knee joint in the office with 4 cc of 0.5% bupivacaine and 20 mg of Kenalog. Patient tolerated the procedure well. I have advised a caregiver that the patient could take ibuprofen 600 mg t.i.d. or as needed if the cortisone does not give her great relief. They will give it some time if her symptoms continue or worsen the caregiver will call me back we could get her back in and possibly do an MRI scan if necessary. I do not see any evidence of meniscal pathology or other new findings today. The patient and the caregiver voiced understanding and agreed with the above plan I will see her back as needed they will call for any further problems difficulties or questions. Not available 12/22/2024 11:19:36 Plan of Treatment Reminders Order Date Submit Date Provider Last Modified By Organization Details Last Modified Time Details Appointments Any 5 2024 01:45P KOFI Doherty Not available Not available Not available Lab None recorded. Referral physical therapist referral - patient will schedule 2023 024 [email or web address] [facility], [address], [place], [address], 08/02/2024 14:04:59 Procedures injection /aspirati on joint/bur sa (PROC) 2024 025 [email or web address] In-Office Order, Internal Use Only DO Not Attach Compendium DO Not Attach Compendium, Do Not Delete/merge, [id number] 12/22/2024 10:37:31 knee aspiratio n/injecti on (PROC) 2023 024 [email or web address] In-Office Order, Internal Use Only DO Not Attach Compendium DO Not Attach Compendium, Do Not Delete/merge, [id number] 09/13/2024 15:08:56 knee aspiratio n/injecti on (PROC) 2023 024 [email or web address] In-Office Order, Internal Use Only DO Not Attach Compendium DO Not Attach Compendium, Do Not Delete/merge, [id number] 09/06/2024 14:32:31 knee aspiratio n/injecti on (PROC) 2023 024 [email or web address] In-Office Order, Internal Use Only DO Not Attach Compendium DO Not Attach Compendium, Do Not Delete/merge, [id number] 08/30/2024 14:10:55 Surgeries None recorded. Imaging XR, knee 2023 024 [email or web address] [facility] [place], [address], [place], [address], 06/28/2024 16:33:42 Medication Orders bupivacai ne HCl 0.5 % (5 mg/mL) injection solution 2024 025 [facility], [address] [place] [address] [address], , [place], [address], 12/22/2024 16:05:30 Kenalog 10 mg/mL suspensio n for injection 2024 025 [facility], [address] [place] [address] [address], , [place], [address], 12/22/2024 16:05:30 ORTHOVISC 30 mg/2 mL intra-art icular syringe 2023 024 [facility], [facility], [place], [address], 09/13/2024 15:30:56 ORTHOVISC 30 mg/2 mL intra-art icular syringe 2023 024 [email or web address], [address] [place] [address] [address]kw[address], , [place], [address], 09/06/2024 14:45:26 ORTHOVISC 30 mg/2 mL intra-art icular syringe 2023 024 [email or web address], [address], [place], [address], 08/30/2024 14:21:48 Patient TargetsNo targets recorded. Patient InstructionsNo instructions recorded. Reason for Referral Physical Therapist Referral for Osteoarthritis of right knee joint patient will schedule Referring Physician: David Galvan, Orthopedic Surgery, Encounter Date: 06/28/2024 Results Created Date Observation Date Name Description Value Unit Range Abnormal Flag Note LastModifiedBy Organization Detail LastModifiedTime 06/24/2006/25/2024 TSH+F REE T4 TSH 2.60 mIU/L normal Refer ence Range > or = 20 Years 0.40- 4.50 Pregn tang Range s First trime ster 0.26- 2.66 Secon d trime ster 0.55- 2.73 Third trime ster 0.43- 2.91 Not Available [address], [address], 06/25/2024 05:05:11 06/24/20 24 06/25/2024 TSH+F REE T4 T4, free 1.2 NG/dL 0.8-1. 8 normal Not Available [address], [address], 06/25/2024 05:05:11 06/24/20 24 06/25/2024 COMPR EHENS ABEL METAB OLIC PANEL glucose 80 mg/dL 65-99 normal Fasti ng refer ence inter robi Not Available [address], [address], 06/25/2024 05:05:11 06/24/20 24 06/25/2024 COMPR EHENS ABEL METAB OLIC PANEL urea nitrogen (BUN) 11 mg/dL 7-25 normal Not Available [address], [address], 06/25/2024 05:05:11 06/24/20 24 06/25/2024 COMPR EHENS ABEL METAB OLIC PANEL creatinine 0.71 mg/dL 0.50-0 .99 normal Not Available [facility] [address], [address], 06/25/2024 05:05:11 06/24/20 24 06/25/2024 COMPR EHENS ABEL METAB OLIC PANEL eGFR 104 mL/mi n/1.7 3m2 > or = 60 normal Not Available [address], [address], 06/25/2024 05:05:11 06/24/20 24 06/25/2024 COMPR EHENS ABEL METAB OLIC PANEL BUN/creatini ne ratio SEE NOTE: (calc ) 6-22 Not Repor ashley: BUN and Creat inine are withi n refer ence range . Not Available [address], [address], 06/25/2024 05:05:11 06/24/20 24 06/25/2024 COMPR EHENS ABEL METAB OLIC PANEL sodium 137 mmol/ L 135-14 6 normal Not Available [address], [address], 06/25/2024 05:05:11 06/24/2006/25/2024 COMPR EHENS ABEL METAB OLIC PANEL potassium 4.3 mmol/ L 3.5-5. 3 normal Not Available [address], [address], 06/25/2024 05:05:11 06/24/2006/25/2024 COMPR EHENS ABEL METAB OLIC PANEL chloride 103 mmol/ L 98-110 normal Not Available [address], [address], 06/25/2024 05:05:11 06/24/20 24 06/25/2024 COMPR EHENS ABEL METAB OLIC PANEL carbon dioxide 27 mmol/ L 20-32 normal Not Available [address], [address], 06/25/2024 05:05:11 06/24/2006/25/2024 COMPR EHENS ABEL METAB OLIC PANEL calcium 9.3 mg/dL 8.6-10 .2 normal Not Available [address], [address], 06/25/2024 05:05:11 06/24/20 24 06/25/2024 COMPR EHENS ABEL METAB OLIC PANEL protein, total 7.3 g/dL 6.1-8. 1 normal Not Available [address], [address], 06/25/2024 05:05:11 06/24/20 24 06/25/2024 COMPR EHENS ABEL METAB OLIC PANEL albumin 3.9 g/dL 3.6-5. 1 normal Not Available [address], [address], 06/25/2024 05:05:11 06/24/2006/25/2024 COMPR EHENS ABEL METAB OLIC PANEL globulin 3.4 g/dL_ (calc ) 1.9-3. 7 normal Not Available [address], [address], 06/25/2024 05:05:11 06/24/20 24 06/25/2024 COMPR EHENS ABEL METAB OLIC PANEL albumin/glob ulin ratio 1.1 (calc ) 1.0-2. 5 normal Not Available [address], [address], 06/25/2024 05:05:11 06/24/20 24 06/25/2024 COMPR EHENS ABEL METAB OLIC PANEL bilirubin, total 0.8 mg/dL 0.2-1. 2 normal Not Available [address], [address], 06/25/2024 05:05:11 06/24/20 24 06/25/2024 COMPR EHENS ABEL METAB OLIC PANEL alkaline phosphatase 67 U/L 31-125 normal Not Available [facility] [employer] [address], [address], 06/25/2024 05:05:11 06/24/20 24 06/25/2024 COMPR EHENS ABEL METAB OLIC PANEL AST 15 U/L 10-35 normal Not Available [facility] [id number], [place], [address], 06/25/2024 05:05:11 06/24/20 24 06/25/2024 COMPR EHENS ABEL METAB OLIC PANEL ALT 14 U/L 6-29 normal Not Available [facility] [address], [place], [address], 06/25/2024 05:05:11 06/24/20 24 06/25/2024 HEMOG LOBIN A1C hemoglobin A1C 5.7 %_of_ total _HGB <5.7 high For someo ne witho ut known diabe kiara, a hemog lobin A1c value betwe en 5.7% and 6.4% is consi stent with predi abete s and shoul d be confi rmed with a follo w-up test. For someo ne with known diabe kiara, a value <7% indic ates that their diabe kiara is well contr olled . A1c targe ts shoul d be indiv idual ized based on durat ion of diabe kiara, age, comor bid condi tions , and other consi derat ions. This assay resul t is consi stent with an incre ased risk of diabe kiara. Curre ntly, no conse nsus exist s regar ding use of hemog lobin A1c for diagn osis of diabe kiara for child vu. This test was perfo rmed on the [facility] c503 platf orm. Effec tive , a velez e in test platf orms from the [employer] to the [employer] c503 may have shift ed HbA1c resul ts angelika red to histo rical resul ts. Based on labor atory valid ation testi ng condu cted at [facility] , the John platf orm relat abel to the [employer] platf orm had an avera ge incre ase in HbA1c value of < or = 0.3%. This diffe rence is withi n accep ashley varia bilit y estab lishe d by the [employer] hemog lobin Stand ardiz ation Progr am. Note that not all indiv idual s will have had a shift in their resul ts and direc t angelika rison s betwe en histo rical and curre nt resul ts for testi ng condu cted on diffe rent platf orms is not recom virginia guzman Not Available [facility] [address] [address], [place], [address], 06/25/2024 05:05:12 06/28/20 24 XR, knee No observ ation record ed. [email or web address] [facility] [place] [address], [place], [address], 06/28/2024 16:20:50 Result Notes None recorded. Problems Name Problem SNOMED Code Status Onset Date Resolution Date Notes Provider Name and Address Organization Details Recorded Time Karley thyroiditi s 59331024 Active 2021 Not Available [employer] 3 22:42:59 Thyroid nodule 041097625 Active 2021 Not Available [facility] 3 22:42:59 Pain of right hip joint 4064260340468 02 Active 2021 Not Available [employer] 3 22:42:59 Osteoarthr itis of right hip joint 9162561730122 07 Active 2021 Not Available [employer] 3 22:42:59 Osteoarthr itis of right knee joint 6154261564587 00 Active 2021 Not Available [facility] 3 22:42:59 Vitamin D deficiency 32018537 Active 2020 Not Available [facility] 3 22:42:59 Major depressive disorder 543169329 Active 2020 Not Available [facility] 3 22:42:59 Goiter 8704327 Active 2021 Not Available [facility] 3 22:42:59 Hypertensi ve disorder 01077501 Active 2020 Not Available [facility] 3 22:42:59 Hypothyroi dism 49580431 Active 05/12/ 2022 Not Available [facility] 3 22:42:59 Pain of right knee joint 7492866600456 00 Active 2021 Not Available [facility] 3 22:42:59 Schizophre chitra 14689897 Active 2020 Not Available [facility] 3 22:42:59 Sleep apnea 63144672 Active 2020 Not Available [facility] 3 22:42:59 Hypersomni a 95104199 Active 2020 Not Available [facility] 3 22:43:00 Mild intellectu al disability 34012329 Active 2020 Not Available [facility] 3 22:43:00 Increased liver function 61618624 Active 2022 Paula Mitchell MD [address], [place], [address] , [employer] 3 11:09:37 Essential hypertensi on 44551718 Active 2023 Paula Mitchell MD [address], [place], [address] , [employer] 4 11:02:31 Hyperlipid emia 09335489 Active 2023 Paula Mitchell MD [address], [place], [address] , [employer] 4 11:09:14 Problem Notes None recorded. Procedures Surgical History Date Name Laterality Status Provider Name and Address Organization Details Recorded Time 4 Cortisone Injection (Dequervains/ Greater Trochantric/ Lateral Epicondylitis/ Shoulder/ Subacromial Space/ Knee or Trigger Finger) completed GAIL Cantor [address], [address], [place], [address], [employer] 06/17/2024 10:45:26 4 Medicare Wellness CPT Code, subsequent completed Hilda Cox RN [place] [employer] 11/30/2023 10:51:48 Imaging Results Imaging Date Name Status LastModified by Organiz ation Details LastModified Time 06/28/2024 XR, knee completed [email or web address] [facility] [place] [address], [place], [address], 06/28/2024 16:20:50 Procedure Notes None recorded. Medical Equipment None Reported. Allergies No known drug allergies Medications Name Sig Start Date Stop Date Status Note LastModified by Organization Details LastModified Time lisinopril 20 mg-hydroch lorothiazi de 12.5 mg tablet Take 1 tablet every day by oral route. 01/14 completed Not Available Not Available Not Available bupivacain e HCl 0.5 % (5 mg/mL) injection solution Take 20 mg by injection route. 2024 active Not Available Not Available Not Avai lable risperidon e 0.25 mg tablet Take 1 tablet every day by oral route. 12/29 completed Not Available Not Available Not Available amlodipine 2.5 mg tablet Take 1 tablet every day by oral route. active Not Available Not Available No t Available Xylocaine 10 mg/mL (1 %) injection solution Take 2 mL by injection route. 06/28 completed 2ml right knee Not Available Not Available Not Available Kenalog 10 mg/mL suspension for injection Take 20 mg by injection route. 2024 active [facility]: 0003-0 494-20 Not Available Not Available Not Available triamcinol one acetonide 40 mg/mL suspension for injection Take 2 mL by injection route. 06/28 completed 2ml right knee Not Available Not Available Not Available losartan 25 mg tablet 1/2 tab po qday active Not Available Not Available No t Available Banophen 25 mg capsule Take 1 capsule every 4 hours by oral route as needed. active Not Available Not Available No t Available ergocalcif nickolas (vitamin D2) 1,250 mcg (50,000 unit) capsule Take 1 capsule every week by oral route. active Not Available Not Available No t Available ibuprofen 600 mg tablet TAKE (1) TABLET BY MOUTH 3 TIMES DAILY NEEDED. *MAX 3 DOSES/24H RS* active Not Available Not Available No t Available risperidon e 0.5 mg tablet active Not Available Not Available Not Available bisacodyl 5 mg tablet Take 1 tablet every day by oral route as needed. 2022 active Not Available Not Available Not Avai lable Stomach Relief 525 mg/15 mL oral suspension Take by oral route as needed. 2022 active Not Available Not Available Not Avai lable escitalopr am 10 mg tablet active Not Available Not Available Not Available ezetimibe 10 mg tablet active Not Available Not Available Not Available rosuvastat in 20 mg tablet 1 po qday active Not Available Not Available No t Available escitalopr am 5 mg tablet 12/29 completed Not Available Not Available Not Available ORTHOVISC 30 mg/2 mL intra-tash cular syringe Inject 2 mL every week by intra-art icular route. 2023 active Not Available Not Available Not Avai lable nitrofuran toin monohydrat e/macrocry stals 100 mg capsule 06/28 completed Not Available Not Available Not Available lidocaine (PF) 20 mg/mL (2 %) injection solution Take 40 mg by injection route. 02/25 completed Not Available Not Available Not Available Chest Congestion Relief 100 mg/5 mL oral liquid Take 10 mL every 4 hours by oral route as needed. active Not Available Not Available No t Available Robafen DM Max 10 mg-200 mg/5 mL oral liquid Take by oral route. 06/28 completed Not Available Not Available Not Available Fish Oil 360 mg-1,200 mg capsule,de layed release active Not Available Not Available Not Available ropivacain e (PF) 5 mg/mL (0.5 %) injection solution in office 11/30 completed [facility] [address]- 064-01 Not Available Not Available Not Available Antacid-An tigas 200 mg-200 mg-20 mg/5 mL oral suspension Take 30 mL every 4 hours by oral route as needed. active Not Available Not Available No t Available acetaminop hen 325 mg capsule Take 2 capsules every 4 hours by oral route as needed. active Not Available Not Available No t Available Fish Oil 1,200 mg (144 mg-216 mg) capsule Take 1 capsule every day by oral route. 06/28 completed Not Available Not Available Not Available Nexlizet 180 mg-10 mg tablet Take 1 tablet every day by oral route. 2022 active Not Available Not Available Not Carley Banks Date Recorded Body height Body mass index (BMI) Body weight Provider Name and Address Organization Details Last Updated DateTime 06/28/2024 154.94 cm 43.5 kg/m2 907542.25 g [employer] 06/28/2024 15:29:54 Date Recorded Body height Body mass index (BMI) Body weight Provider Name and Address Organization Details Last Updated DateTime 08/30/2024 162.56 cm 39.5 kg/m2 438588.25 g [employer] 08/30/2024 14:09:16 Date Recorded Body height Body mass index (BMI) Body weight Provider Name and Address Organization Details Last Updated DateTime 09/06/2024 162.56 cm 39.5 kg/m2 049442.25 g [employer], [employer] 09/06/2024 14:30:53 Date Recorded Body height Body mass index (BMI) Body weight Provider Name and Address Organization Details Last Updated DateTime 09/13/2024 162.56 cm 38.8 kg/m2 362059.95 g [employer] 09/13/2024 15:05:47 Date Recorded Body height Body mass index (BMI) Body weight Provider Name and Address Organization Details Last Updated DateTime 12/22/2024 162.56 cm 37.7 kg/m2 42696.17 g [employer] 12/22/2024 10:28:46 Social History Question Answer Notes LastModified by Organizat ion Details LastModified Time Tobacco Smoking Status Never Smoker Not Available [facility] 12/31/2022 22:41:52 Do You Have An Advance Directive? No [id number] Information not available 12/31/2022 Are You Blind Or Do You Have Difficulty Seeing? No [id number] Information not available 12/31/2022 What Is Your Level Of Caffeine Consumption? Moderate [id number] Information not available 12/31/2022 How Much Tobacco Do You Chew? None [id number] Information not available 12/31/2022 In The 14 Days Before Symptom Onset, Have You Had Close Contact With A Laboratory-confirm ed COVID-19 While That Case Was Ill? No [id number] Information not available 12/31/2022 In The 14 Days Before Symptom Onset, Have You Had Close Contact With A Person Who Is Under Investigation For COVID-19 While That Person Was Ill? No [id number] Information not available 12/31/2022 Are You Deaf Or Do You Have Serious Difficulty Hearing? No [id number] Information not available 12/31/2022 What Type Of Diet Are You Following? REGULAR [id number] [id number] Information not available 12/31/2022 Which Illicit Or Recreational Drugs Have You Used? None [id number] Information not available 12/31/2022 Are There Any Guns Present In Your Home? No [id number] Information not available 12/31/2022 Advance Directive- Providers Has Reviewed Directive And Consents To Follow Them (insert Provider Name With Any Objectives In Notes Field) Yes [id number] Information not available 12/31/2022 What Was The Date Of Your Most Recent Tobacco Screening? 11/30/2023 [email or web address] Information not available 11/30/2023 Do You Use Sunscreen Routinely? No [id number] Information not available 12/31/2022 Sex: Unknown Functional Status Question Answer Note LastModified by Organizat ion Details LastModified Time What is your level of alcohol consumption? None [id number] Information not available 12/31/2022 Do you or have you ever used smokeless tobacco? Never used smokeless tobacco [id number] Information not available 12/31/2022 Do you have difficulty walking or climbing stairs? No [id number] Information not available 12/31/2022 Do you have difficulty doing errands alone? Yes [id number] Information not available 12/31/2022 What is your occupation? disabled [id number] Information not available 12/31/2022 Do you have difficulty dressing or bathing? No MIGRATION.48333 [id number] Information not available 12/31/2022 Do you or have you ever used e-cigarettes or vape? Never used electronic cigarettes [id number].[id number] Information not available 12/31/2022 What is your exercise level? None heart condition [id number].[id number] [id number] Information not available 12/31/2022 Mental Status Question Answer Note LastModified by Organizat ion Details LastModified Time Do you have difficulty concentrating, remembering or making decisions? Yes [id number] Information not available 12/31/2022 Family History Relationship Description Onset Age of this Age Resolved Age Notes LastModified by Organization Details LastModified Time Mother Hypertensive disorder [id number] Not available 12/31/2022 22:41:58 Mother Heart disease [email or web address] Not available 06/18 10:30:23 Paternal Aunt Hypertensive disorder [email or web address] Not available 2023 15:37:59 Maternal Aunt Hypertensive disorder [email or web address] Not available 2023 15:38:04 Medical History Condition Response OBESITY Y DEPRESSION (INCLUDING POST ) Y HYPERTENSION Y Gynecological History Statement/Question Response Date of Last Mammogram 01/23/2023 Obstetrics History GPAL:G 0 P 0 0 0 0 Immunizations Vaccine Type Date Status Note Provider Nam e and Address Organization Details Recorded Time SARS-COV-2 (COVID-19) vaccine, UNSPECIFIED 1 completed Not Available [facility] 12/31/2022 22:44:16 Tdap 0 completed Not Available [facility] 12/31/2022 22:44:16 Past Encounters Encounter ID Performer Location Encounter Start Date Encounter Closed Date Diagnosis/Indication Diagnosis SNOMED-CT Code Diagnosis ICD10 Code Diagnosis Note [id number] Paula Mitchell MD [facility] [place] [facility] [address] [facility] [address] [place] [address] 02/21/2021 00:00:00 02/27/2021 17:15:30 [id number] MD DONTRELL [facility] [place] Primary [facility] [address] [facility] [address] [place] [address] 03/27/2021 00:00:00 03/28/2021 16:06:32 [id number] Paula Mitchell MD [facility] [place] Primary Care [address] 140 [facility] [place] [address] 08/27/2021 00:00:00 08/29/2021 16:09:17 [id number] Paula Mitchell MD [facility] Primary Care [address] [place] [address] 01/14/2022 00:00:00 01/14/2022 10:28:35 [id number] Donaldo Cooley MD [facility] [place] [address] [place] [address] 02/10/2022 00:00:00 02/10/2022 12:16:08 [id number] Paula Mitchell MD S_Charanjit [address] 140 [place] [address] 02/25/2022 00:00:00 02/25/2022 10:35:37 [id number] S_Histor ic_Gateway _ATHENA_M IGRATION_ DEFAULT_1 _1 , 03/13/2022 00:00:00 03/13/2022 15:40:10 [id number] Donaldo Cooley MD [facility] [place] [address] [facility] [address] [place] [address] 03/24/2022 00:00:00 03/24/2022 11:44:15 [id number] S_Histor ic_Gateway _ATHENA_M IGRATION_ DEFAULT_1 _1 , 05/01/2022 00:00:00 05/01/2022 13:01:20 [id number] Paula Mitchell MD [facility] Primary [facility] [address] [place] [address] 05/27/2022 00:00:00 05/27/2022 10:18:32 [id number] Donaldo Cooley MD Wero[facility] [place] [address] [place] [address] 09/08/2022 00:00:00 09/08/2022 09:55:07 [id number] Paula Mitchell MD [facility] Primary Care [address] [place] [address] 11/27/2022 00:00:00 12/02/2022 08:00:22 [id number] Cindy Joshi MD [facility] [place] [address] [place] [address] 12/29/2022 00:00:00 12/29/2022 12:39:07 [id number] Paula Mitchell MD [facility] Primary Care [place] [address] [facility] [address] [place] [address] 05/27/2023 10:52:40 05/27/2023 11:21:03 Karley thyroiditis 85042809 E06.3 Needs new referral, previous endocrinol ogist moving Hypertensive disorder 38 496940 I10 stablechec k labs Vitamin D deficiency 347 12117 E55.9 Increased liver function 47635236 R94.5 [id number] Donaldo Cooley MD [facility] [place] [address] [place] [address] 06/18/2023 10:20:49 06/18/2023 11:20:36 Osteoarthritis of right knee joint [id number] 20678 M17.11 [id number] Paula Mitchell MD [facility] Primary Care [place] [address] [facility] [address] [place] [address] 11/30/2023 10:49:15 11/30/2023 11:23:49 Adult health examination 446928793 Z00.00 Mammogram repeat due ap done 11/2020-rep eat due 11/2025Fast ing labs orderedTda p given 11/30/19Flu vaccine given 08/24Recom mend shingrix vaccines series at age 50Recommen d covid boosterCol oguard negative 06/24 repeat 06/27 Karley thyroiditis 21 071170 E06.3 Will establish with new endocrinol ogist in [facility] labs Mild intel lectual disability 02090031 F70 stable Vitamin D deficiency 347 06438 E55.9 check labs Schizophrenia 09114759 F 20.9 stablesees psychiatry Sleep apnea 76931187 G47 .30 stableuses cpap nightly Essential hypertension 40846460 I10 stablechec k labscontin ue losartan 25 mg 1/2 tab daily and amlodipine 2.5 mg daily Screening mammography 24 034335 Z12.31 Hyperlipidemia 98636597 E78.5 Z79.899 stablecont inue rosuvastat in 20 mg daily and ezetimibe 10 jmg daily [id number] PATEL [facility] Primary Care [facility] [address] [facility] [address] [place] [address] 06/17/2024 10:16:16 06/17/2024 11:06:10 Pain of right knee joint 9264941584 93275 M25.561 pain noted to right knee-osteo arthritisR OM and strength are limited to paininject ion given-tole rated well Hypothyroidism 76701264 E03.9 Diabetes m ellitus screening 847731056 Z13.1 [id number] Jaden Rodriguez MD [facility] [place] [address] [place] [address] 06/28/2024 15:11:19 06/28/2024 16:09:08 Osteoarthritis of right knee joint 6630169089 40985 M17.11 Pain of ri ght knee joint 4016402771 91548 M25.960 [id number] Jaden Rodriguez MD [facility] [place] [address] [place] [address] 08/30/2024 14:03:23 08/30/2024 14:24:29 Osteoarthritis of right knee joint 6856678134 18538 M17.11 Pain of ri ght knee joint 0750379666 09969 M25.724 [id number] Jaden Rodriguez MD [facility] [place] [address] [place] [address] 09/06/2024 14:28:44 09/06/2024 15:07:06 Osteoarthritis of right knee joint 1079954450 73594 M17.11 Pain of ri ght knee joint 0904446334 09376 M25.099 [id number] Jaden Rodriguez MD [facility] [place] [address] [place] [address] 09/13/2024 15:04:04 09/13/2024 15:20:10 Osteoarthritis of right knee joint 1639337067 77237 M17.11 Pain of ri ght knee joint 9219525917 20323 M25.215 [id number] Jaden Rodriguez MD [facility] [place] [address] [facility] [address] [place] [address] 12/22/2024 10:22:47 12/22/2024 10:56:08 Osteoarthritis of right knee joint 8308944468 22742 M17.11 Pain of ri ght knee joint 3246002629 60981 M25.561 Health Concerns Section Related Observation LastModified by Organization Detai ls LastModified Time None Recorded Concern Status LastModified by Organization Details LastModified Time None Recorded Advance Directives Directive N: Payers Encounter Date Sequence Insurance Name Policy Number Policy Jacskon Covered Member ID Jackson Member ID Guarantor Name 06/28/2024 1 [place] Petrona Pemberton [id number] Petrona Pemberton 06/28/2024 2 [place] OR MEDICARE REPLACEMENT PRIMARY) Petrona Pemberton [id number] Petrona Pemberton 08/30/2024 1 [place] Petrona Pemberton [id number] Petrona Pemberton 08/30/2024 2 [place] REPLACEMENT PR[place]) Petrona Pemberton [id number] Petrona Pemberton 09/06/2024 1 [place] Petrona Pemberton [id number] Petrona Pemberton 09/06/2024 2 [place] OR [place]PLACEMENT PR[place]) Petrona Pemberton [id number] Petrona Pemberton 09/13/2024 1 [place] Petrona Pemberton [id number] Petrona Pemberton 09/13/2024 2 [place] REPLACEMENT PR[place]) Petrona Pemberton [id number] Petrona Pemberton 12/22/2024 1 [place] Petrona Pemberton [id number] Petrona Pemberton 12/22/2024 2 [place] OR [place] REPLACEMENT PR[place]) Petrona Pemberton [id number] Petrona Pemberton Notes Date Note Type Note Provider Name and Address Organization Details Recorded Time 06/28/2024 text/html the patient is a 49-year-old female with intellectual disability and mental illness who lives in a [facility]. I have seen her previously about a year ago for right knee pain we did a shot of cortisone she got excellent relief for quite awhile. She has moderate primary osteoarthritis with some narrowing of the medial and patellofemoral compartments and small marginal osteophytes. She comes in today with her nurse outreach case manager from the [facility] she lives in. She states she was having quite a bit of pain recently in the right knee she does have Tylenol and ibuprofen 600 mg t.i.d. available as needed. Recently they went to see her primary care physician who did do a cortisone injection into the right knee. She states this was about 2 weeks ago and has helped quite a bit he still recommended she come in for further evaluation with Orthopedics. There is no history of trauma or injury to the right knee main complaint is trying to step up into a van could not stand or walk for long periods because of the aching in the right knee which occasionally would keep her awake at night. Despite conservative measures she reported that her pain was about a 9 on a scale 1-10. There is no effusion or swelling no locking or catching in the knee. Again the shot of cortisone gave her pretty good relief but they wanted to come in and talk about further treatment options and the family practitioner also wanted me to take and review new X-rays. I do not see any acute findings she has mild to moderate primary osteoarthritis as described above.A new past medical history sheet was reviewed and signed on intake sheet of today's date drug allergies current medications family social history previous surgical history was reviewed and discussed in detail today with the patient and her caregiver. KOFI Elkins [address] [place] [address], [facility] [address], [place], [address], [place] [facility] [employer] 06/28/2024 16:21:59 08/30/2024 text/html Patient returns for Orthovisc injection number 1 right knee. We have treated her knee previously she has moderate primary osteoarthritis in the right knee joint with chronic pain cortisone has worked okay for her in the past but does not give her good long-term relief. She has an intellectual disability she comes in today with her records management technician who states she does complain of knee pain on a regular basis chronically. Conservative measures do give her some relief for periods. We are going to try a round of gel shots see if that makes a difference for her. KOFI Elkins [address], [place], [address], [employer] 08/30/2024 14:21:42 09/06/2024 text/html Patient returns for Orthovisc injection number 2 right knee. She is starting to get some relief from the 1st injection. She has moderate primary osteoarthritis in his chronic pain. The patient comes in today with her caregiver as she has an intellectual disability but is able to tell me that the 1st injection is already giving her some relief. She denies any effusion or swelling no erythema heat or other signs of infection is walking more comfortably today. KOFI Elkins [address], [place], [address], [employer] 09/06/2024 14:43:30 09/13/2024 text/html Patient returns for Orthovisc injection number 3 right knee. Patient has moderate primary osteoarthritis right knee joint she has an intellectual disability not a candidate for any surgery. She has gotten by with conservative measures previously. She is doing well after the 1st 2 rounds of Orthovisc no complaints today. She is with her caregiver who states she has been doing better with gel shots. KOFI Elkins [address], [place], [address], [employer] 09/13/2024 15:23:13 12/22/2024 text/html Patient returns after a fall at the [facility]. She states that she was having some knee pain she conveyed this to her caregiver. She has a mental disability and is a poor historian but was able to tell me that she tripped and fell forward and hurt her knee a couple of weeks ago. I have seen her for her knee before she has moderate primary osteoarthritis of the right knee joint we did gel shots 3 months ago which gave her excellent relief. Her knee was feeling pretty good until a fall 2 weeks ago. She really did not strike her knee sudden more like a twist type injury. She had had no bruising or swelling afterwards is able to bear full weight just has some generalized aching along the joint lines of the right knee. Denies any loss of motion does not demonstrate any locking catching or mechanical symptoms the knee otherwise looked benign. The caregiver that is with her today stated that she has been complaining about some knee pain recently had been taking some ibuprofen but had stopped because her knee was feeling good then restarted it but not on a regular basis. She comes in today requesting a cortisone injection of the right knee with her caregiver from the fdc. KOFI Elkins [address] [facility], [facility] [address], [place], [address], [facility] [place] [employer] [facility] 12/22/2024 11:19:53 OBGyn Episode No OBEpisode recorded.
== END 2025-03-13 12:55 | disposition home or self-care (01) ==
PROVIDERS: PCP Internal Medicine; Visit Provider Internal Medicine Endocrinology, Diabetes & Metabolism
DX: E04.1 Nontoxic single thyroid nodule (principal)
CPT/HCPCS: 76536